=== PATIENT | male | born 1955 | race Caucasian/White ===

== ENCOUNTER → 2018-11-22 14:34 | Outpatient (CLI) | payer OTHER, SELFPAY ==
[2018-11-06 08:59] VITALS: BMI 34.0
--- NOTE | 2018-11-22 14:37 | ECHOD_ITS ---
Reason For Study: MURMUR Procedure This was a 2D Doppler, Color Flow transthoracic echocardiogram. Exam performed in department. Left Ventricle Normal LV size. The estimated ejection fraction is 60 %. Stage 1 diastolic dysfunction. No regional wall motion abnormalities noted. Right Ventricle Normal RV size. Normal systolic function. Atria Normal left atrium. Normal right atrium. Mitral Valve Normal mitral valve. Trivial eccentric mitral valve insufficiency. Tricuspid Valve Normal tricuspid valve. Mild (1+) tricuspid valve insufficiency. Aortic Valve Normal aortic valve. Trisinus/trileaflet aortic valve. Pulmonic Valve Normal pulmonic valve. Great Vessels Normal aortic root. The pulmonary artery is normal size. Normal inferior vena cava. Pericardium/Pleural No pericardial effusion. MMode/2D Measurements & Calculations LVIDd: 4.4 cm IVSd: 1.2 cm Ao root diam: 3.6 cm LVIDs: 3.1 cm LVPWd: 1.1 cm FS: 28.1 % LAV(MOD-bp): 48.5 ml LA A4 area: 17.2 cm2 LA dimension(2D): 4.0 cm LAV(MOD-bp) Indexed: 20.7 ml/m2 LAV(MOD-sp2): 52.2 ml LAV(MOD-sp4): 44.8 ml RA A4 area: 14.1 cm2 Time Measurements MV dec time: 0.25 sec Doppler Measurements & Calculations MV E max pepito: 59.0 cm/sec Lat Peak E' Pepito: 5.1 cm/sec Med Peak E' Pepito: 5.6 cm/sec MV A max pepito: 79.2 cm/sec E/E' lat: 11.6 E/E' med: 10.6 MV E/A: 0.74 Ao V2 max: 179.1 cm/sec LV V1 max: 113.8 cm/sec PA V2 max: 106.3 cm/sec Ao max P.8 mmHg LV V1 max P.2 mmHg TR max peptio: 226.9 cm/sec TR max P.6 mmHg Interpretation Summary Normal LV size. The estimated ejection fraction is 60 %. Stage 1 diastolic dysfunction. Mild (1+) tricuspid valve insufficiency. Ordering Physician: Rush Francisco Referring Physician: Arley Martinez Performed By: Shelbie Mcgee, HERACLIO, RVT
== END ==
PROVIDERS: Family Provider Family Medicine; PCP Family Medicine; Referring Provider Internal Medicine Cardiovascular Disease; Visit Provider Internal Medicine Cardiovascular Disease
DX: I10 Essential (primary) hypertension (principal); R01.1 Cardiac murmur, unspecified
CPT/HCPCS: 93306

== ENCOUNTER → 2019-11-22 06:37 | Outpatient (CLI) | payer OTHER, SELFPAY ==
[2019-11-12 10:03] VITALS: BMI 34.9
--- NOTE | 2019-11-22 08:42 | STRESSREP_ITS ---
Stress Test Report Thank you exercise myocardial perfusion stress test. 64-year-old man with a history of chest pain. Stress protocol: Resting EKG demonstrates normal sinus rhythm with a rate of 75 bpm normal intervals are noted resting blood pressure is 142/96 mmHg. The patient exercised according to regular Wesley protocol for 5 minutes and 18 seconds. The maximum heart rate attained was 136 bpm which was 86% of maximum predicted heart rate the maximum workload was 7 metabolic equivalents. At rest there were no ST or T wave changes noted to suggest ischemia at peak infusion nonspecific ST-T wave changes were noted with no meet the criteria for ischemia. No clinical angina was noted the test was terminated due to dyspnea. The peak blood press ure was 212/96 which was hypertensive response to exercise. Myocardial perfusion protocol. 15.0 mCi of technetium 99m sestamibi was injected at rest. The patient exercised according to regular Wesley protocol. At peak infusion 45.0 mCi of technetium 99m sestamibi was injected stress images were obtained stress and rest images were reconstructed in comparing the short axis vertical long horizontal long axis. Gated images were also obtained Perfusion SPECT analysis: Review of the stress images demonstrate normal uptake of tracer noted in all areas of the myocardium the resting images similar demonstrate normal uptake of tracer noted in all areas of myocardium. No areas of reversibility are noted suggest ischemia no previous infarct is noted. Gated SPECT analysis: The gated ejection fraction is noted to be 60%. Conclusion: Normal exercise myocardial perfusion stress test at a moderate workload. Preserved ejection fraction.
== END ==
PROVIDERS: PCP Family Medicine; Referring Provider Internal Medicine Cardiovascular Disease; Visit Provider Internal Medicine Cardiovascular Disease
DX: I25.10 Atherosclerotic heart disease of native coronary artery without angina pectoris (principal); I10 Essential (primary) hypertension; Z95.5 Presence of coronary angioplasty implant and graft
CPT/HCPCS: 78452; 93017; A9500; A4216

== ENCOUNTER 2021-03-22 08:41 | Inpatient (IN) | payer OTHER, SELFPAY ==
[2021-03-22] VITALS (15 sets, daily range): BP systolic 129–174; BP diastolic 66–117; PULSE 66–86; RESP 14–21; TEMP 36.2–36.9; O2SAT 93–99; BMI 36.4; BMI 36.0
--- NOTE | 2021-03-22 09:10 | EKG12_ITS ---
Test Reason : REPEAT Blood Pressure : / mmHG Vent. Rate : 061 BPM Atrial Rate : 061 BPM P-R Int : 214 ms QRS Dur : 082 ms QT Int : 398 ms P-R-T Axes : 054 -35 034 degrees QTc Int : 400 ms Sinus rhythm with 1st degree A-V block Left axis deviation Nonspecific T wave abnormality Abnormal ECG Confirmed by MATT BLANCO, MELISSA ([id number]), food expeditor JUSTIN WAGNER ([id number]) on 03/23/2021 8:35:23 AM Referred By: FER Confirmed By:MELISSA GUTIERREZ MD
--- NOTE | 2021-03-22 09:11 | ED.VIS.CHEST ---
HPI History of Present Illness Chief Complaint: Chest Pain Informant: patient Onset/Context/Timing Onset: Yesterday Activity at onset: activity on onset and light activity Timing: Intermittent Quality: Positive for Pressure Location: Substernal Current Severity: Moderate Maximum Severity: Severe Worsened By: Exertion Relieved By: Rest (but not this AM) Associated Symptoms: Positive for Diaphoresis; Negative for Nausea, Dyspnea, Cough, Fever, Lightheadedness and Palpitations Narrative Narrative: 65-year-old male with a history of coronary disease and cardiac stents presenting with intermittent chest discomfort that started last night with light activity/exertion. Whenever resting it would resolve within about 30 minutes. This morning he was in the basement and came up the steps and had the discomfort again, it has been there for 1.5 hours and has not yet resolved. Last took his aspirin last night before he went to bed, 81 mg. Has not tried any other medications for this discomfort yet. Does not usually get chest discomfort. It is substernal pressure radiating to the jaw on the left upper extremity. Nonpleuritic. Prior Similar Symptoms: Yes, With Prior SC and With Prior Angina [facility] Medical History (Updated 03/22/21 @ 10:[address] Ruslan Davenport MD) Atherosclerosis of coronary artery of [place] heart without angina pectoris Essential (primary) hypertension Fibromyalgia History of diverticulitis History of inferior wall myocardial infarction (07/2009) Hyperlipidemia Obesity Home Medications amitriptyline 75 mg tablet 75 mg PO QHS 10/27/17 [History Last Taken Unknown] aspirin 81 mg tablet,delayed release 81 mg PO DAILY 10/27/17 [History Last Taken Unknown] cholecalciferol (vitamin D3) 50 mcg (2,000 unit) tablet 2,000 unit PO DAILY 10/27/17 [History Last Taken Unknown] clopidogrel 75 mg tablet 75 mg PO DAILY 10/27/17 [History Last Taken Unknown] duloxetine 60 mg capsule,delayed release 60 mg PO DAILY 10/27/17 [History Last Taken Unknown] nitroglycerin 0.4 mg sublingual tablet 0.4 mg SUBLINGUAL Q5-15M PRN 10/27/17 [History Last Taken Unknown] pravastatin 80 mg tablet 80 mg PO DAILY 10/27/17 [History Last Taken Unknown] omega-3 fatty acids 1,000 mg capsule 1,000 mg PO DAILY 11/02/17 [History Last Taken Unknown] biotin 5 mg capsule 5 mg PO DAILY 11/12/19 [History Last Taken Unknown] losartan 100 mg tablet 100 mg PO DAILY #90 tab 01/01/20 [Rx Last Taken Unknown] carvedilol 25 mg tablet 25 mg PO BID #180 tab 02/02/21 [Rx Last Taken Unknown] Allergy/AdvReac Type Severity Reaction Status Date / Time bee venom protein (honey bee) Allergy Severe Anaphylaxis Verified 03/22/21 09:42 lisinopril AdvReac Intermediate cough Verified 03/22/21 09:42 Family History Father CAD (coronary artery disease) Mother , 84 Colon cancer Cancer lung Surgical History History of colon resection (06/2012) History of coronary artery stent placement (08/2009) History of herniorrhaphy (11/2018) History of left heart catheterization (03/05/10) History of lithotripsy History of tonsillectomy Social History Smoking Status: Former smoker quit date: 06/25/09 pack-years: 25 alcohol intake: never caffeine: Yes Type: coffee Number of servings: 3 ROS ROS ED Constitutional Constitutional ED: Reports excessive sweating; Denies chills or fever(s) Eyes Eyes: Denies change in vision or diplopia ENT ENT ED: Denies rhinorrhea or sore throat Cardiovascular Cardiovascular: Reports as per HPI and chest pain; Denies palpitations Respiratory/Chest Respiratory/Chest: Denies cough or dyspnea Gastrointestinal Gastrointestinal: Denies abdominal pain, diarrhea, nausea or vomiting Genitourinary Genitourinary ED: Denies dysuria or hematuria Musculoskeletal Musculoskeletal: Denies back pain or neck pain Integumentary Denies abscess or rash Neurologic Neurologic: Denies headache(s), paresthesias or weakness Psychiatric Psychiatric: Denies anxiety or suicidal thoughts EXAM Physical Exam Const Vital Signs: 03/22/21 08:41 03/22/21 09:29 03/22/21 09:36 Temperature 98.5 F Temperature Source Oral Pulse Rate 86 83 Respiratory Rate 21 H Blood Pressure 170/102 H 156/104 H Blood Pressure Mean 124 Pulse Ox 98 Oxygen Delivery Method Room Air Room Air 03/22/21 09:45 03/22/21 10:09 Temperature Temperature Source Pulse Rate 76 70 Respiratory Rate 16 Blood Pressure 136/92 H 129/76 H Blood Pressure Mean 93 Pulse Ox 94 Oxygen Delivery Method Positive well nourished, well developed and obese General Appearance ED: well developed and NAD Nutritional Appearance: obese HEENT Reports moist mucous membranes normocephalic and atraumatic Eyes PERRL and EOMs intact bilaterally Neck full ROM and supple Resp normal respiratory effort and clear to auscultation bilaterally Cardio regular rate and regular rhythm Cardio Narrative: 2/6 systolic murmur GI non-tender and non-distended Auscultation: normoactive bowel sounds Palpation: soft Back/Spine no CVA tenderness General Back: other FROM Extremity normal to inspection and no calf tenderness General Extremety ED: Negative for edema, pulses abnormal or tenderness General Extremity: Negative for edema or pulses abnormal Neuro oriented x3, CN's II-XII intact bilaterally and no sensory deficits noted Sensorium / Orientation: awake and alert Motor Exam: strength 5/5 throughout Skin no rashes or lesions noted and no wounds Heart Score History: Highly Suspicious ECG: Nonspecific Repolarization Age: >45 - <65 years Risk Factors: >/= 3 Risk Factors or History of CAD Troponin: </= Normal Limit Score: 6 MDM MDM MDM Narrative Medical decision making narrative: Initial troponin within normal limits, borderline however. Concerned about the patient's symptoms and EKG, consistent with unstable angina. Pain-free after 2 nitroglycerin. Repeat EKG shows the ST depressions are resolved. Discussed with Dr. Francisco. Agrees with admission. No heparin at this time recommended. We will monitor him for now in the emergency department, he will go directly to the Operations Professional with cardiology. Discussed with hospitalist. Lab Data Attestation: I reviewed the patient's lab results. Labs: Laboratory Results - last 24 hr 03/22/21 03/22/21 03/22/21 08:45 08:45 08:45 WBC 4.9 RBC 4.70 Hgb 14.5 Hct 43.1 MCV 91.7 MCH 30.9 MCHC 33.6 RDW Std Deviation 42.3 RDW Coeff of Leobardo 12.6 Plt Count 154 MPV 10.1 Immature Gran % (Auto) 0.400 Neut % (Auto) 58.4 Lymph % (Auto) 25.5 [place] % (Auto) 11.0 H Eos % (Auto) 4.1 Baso % (Auto) 0.6 Absolute Neuts (auto) 2.9 Absolute Lymphs (auto) 1.25 Nucleated RBC % 0 APTT 29.2 Sodium 137 Potassium 4.0 Chloride 106 Carbon Dioxide 24.0 Anion Gap 7 BUN 12 Creatinine 0.90 Estim Creat Clear Calc 92.21 Est GFR (MDRD) Af Amer 109 Est GFR (MDRD) Non-Af 90 BUN/Creatinine Ratio 13.3 Glucose 225 H Calcium 8.5 Troponin I High Sens 68 Radiography Diagnostic Testing: Clinical Impression(s) from Imaging Studies Chest X-Ray 03/22/21 09:51 IMPRESSION: Hyperinflation. The lungs are clear. Electronically Signed: Shimon Rider MD at 10:14 EST , EKG Initial EKG: Attestation: I personally reviewed and interpreted this EKG as follows: Interpretation: Sinus Rhythm and AV Block (1st deg) Comments: Very slight ST depressions V3-V6, less than [address] elevations. Left axis. Prior EKG tracings: not available for review Follow-up EKG: Attestation: I personally reviewed and interpreted this EKG as follows: Interpretation: Sinus Rhythm and No Acute Injury Pattern Comments: Resolution of ST depressions Discharge Plan Dx/Rx/DC Orders Clinical Impression: Unstable angina Disposition Disposition: Acute Care Hospital [facility]
[2021-03-22 09:29] LABS: Absolute Lymphocyte Count 1.25 X10^3/uL (0.83-4.51); Absolute Neutrophil Count 2.9 X10^3/uL (2.0-7.7); Basophil# 0.03 X10^3/uL; Basophil% 0.6 % (0-1); Eosinophils% 4.1 % (0-5); Hematocrit 43.1 % (40-54); Hemoglobin 14.5 g/dL (13.0-16.5); Lymphocyte # 1.25 X10^3/ul (0.83-4.51); Lymphocyte % 25.5 % (19-41); Mean Corp Hgb Conc 33.6 g/dL (32-36); Mean Corpuscular Hgb 30.9 pg (27.0-32.0); Mean Corpuscular Volume 91.7 fL (80-94); Mean Platelet Vol. 10.1 fl (6.2-12.0); Monocyte# 0.54 X10^3/uL; NRBC Flagged by Analyzer 0 % (0-5); Neutrophil # 2.87 X10^3/uL (2.7-7.7); Neutrophil % 58.4 % (47-70); Platelet Count 154 K/mm3 (150-450); RBC Distribution Width CV 12.6 % (11.6-14.6); RBC Distribution Width SD 42.3 fl (35.1-43.9); White Blood Count 4.9 K/mm3 (4.4-11.0)
[2021-03-22] MEDS: 0.9% Normal Saline 1,000 ML 150 ML IV ×2 (09:29→18:14)
[2021-03-22] MEDS: Aspirin 81 MG TAB.CHEW 324 MG PO (09:29)
[2021-03-22] MEDS: Nitroglycerin SL (ED/IMG/CATH) 0.4 MG TABLET SL ×2 (09:29→09:45)
[2021-03-22 09:35] LABS: Partial Thromboplast Time 29.2 Seconds (24.1-36.2)
[2021-03-22 09:42] LABS: Anion Gap 7 (5-15); BUN 12 mg/dL (7-18); BUN/Creat Ratio 13.3 RATIO (10-20); Calcium,Total 8.5 mg/dL (8.5-10.1); Chloride 106 mmol/L (98-107); EST Glomerular Filtration Rate 90 mL/min (>60); Est Glom Filt Rate - Afr Amer 109 mL/min (>60); Estimated Creatinine Clearance 92.21 ml/min; Glucose 225 mg/dL (74-106); Sodium Level 137 mmol/L (136-145); Troponin-I HS 68 pg/mL (3.0-78.0)
--- NOTE | 2021-03-22 09:51 | RAD_ITS ---
STUDY: X-RAY CHEST REASON FOR EXAM: Male, 65 years old. Chest pain TECHNIQUE: Single AP portable view of the chest. COMPARISON: None. FINDINGS: EKG electrodes are seen. Hyperinflation. The lungs are clear. There is no demonstrated pleural abnormality. Normal size heart. Normal mediastinum and adrian. Normal visualized pulmonary arteries. There is atherosclerotic calcification of the aortic arch with tortuosity. There are diffuse degenerative changes of the visualized thoracic spine. Normal visualized ribs, clavicles, and shoulders. There is no demonstrated abnormality of the visualized soft tissue structures of the upper abdomen. RAD/Chest 1 View (Portable) IMPRESSION: Hyperinflation. The lungs are clear. Electronically Signed: Shimon Rider MD at 10:14 [facility] ,
--- NOTE | 2021-03-22 10:32 | EKG12_ITS ---
Test Reason : CP Blood Pressure : / mmHG Vent. Rate : 084 BPM Atrial Rate : 084 BPM P-R Int : 214 ms QRS Dur : 088 ms QT Int : 348 ms P-R-T Axes : 044 -39 096 degrees QTc Int : 411 ms Sinus rhythm with 1st degree A-V block Left axis deviation Nonspecific ST and T wave abnormality Abnormal ECG Confirmed by MATT BLANCO, MELISSA ([id number]), slot editor JUSTIN WAGNER ([id number]) on 03/23/2021 8:35:36 AM Referred By: DAVIDE/YU Confirmed By:MELISSA GUTIERREZ MD
--- NOTE | 2021-03-22 10:43 | PCM.CONS.C ---
Assessment & Plan Assessment/Plan (1) Unstable angina: PLAN: He presents with chest discomfort suggestive of unstable angina. At this time I would recommend that we proceed with a left heart catheterization especially with his dynamic EKG changes. The above has been explained to the patient the risk benefits alternatives he understands and agrees to proceed. Addendum: Cardiac catheterization performed today demonstrated normal left main coronary artery: Left anterior descending artery with mid 98% stenosis noted. Left circumflex artery previously stented with mild diffuse disease. Ramus intermedius with mild diffuse disease. Right coronary artery which is dominant previously stented and no evidence of in-stent stenosis. Based on the above angiographic findings the patient would undergo PCI of the left anterior descending artery. (2) History of coronary artery stent placement: PLAN: He does have a history of known coronary artery disease status post previous angioplasty and stent placement. This was reevaluated at the cardiac catheterization today. (3) Essential (primary) hypertension: PLAN: He does have a hypertension which does not appear to be very well controlled. We would relook at his medications and aggressively make changes. (4) Hyperlipidemia: QUALIFIERS: Hyperlipidemia type: pure hypercholesterolemia Qualified Code(s): E78.00 - Pure hypercholesterolemia, unspecified; E78.0 - Pure hypercholesterolemia PLAN: He will continue with aggressive risk factor modification. Thank you for allowing me to participate in the care of your patient. Please don't hesitate to call if any issues arise. HPI Consult Data Date of Consult: 03/22/21 HPI Narrative HPI Narrative: TEE WATKINS, is a 65 M who presents to the emergency room with complaints of chest discomfort. He says that it started this morning with what he considers to be fairly minor activity. He presented to the emergency room complaining of the same an EKG was done which demonstrated evidence of inferolateral ST depression. He was given sublingual nitroglycerin with improvement in the chest discomfort as well as the EKG changes. He has been compliant with his medications. He last saw us in the office in January 2021. He had previously undergone angioplasty and stenting of the left circumflex artery 2009 and also the right coronary artery, history of hypertension. A follow-up cardiac catheterization in 2010 demonstrated patency of his previously placed stents. He denied any shortness of breath or paroxysmal nocturnal dyspnea or pedal edema no neck arm or jaw discomfort suggest angina and his been compliant with his medications. Cardiac enzymes were normal. [facility] Medical History Atherosclerosis of coronary artery of [place] heart without angina pectoris Essential (primary) hypertension Fibromyalgia History of diverticulitis History of inferior wall myocardial infarction (07/2009) Hyperlipidemia Obesity Home Medications amitriptyline 75 mg tablet 75 mg PO QHS 10/27/17 [History Last Taken Unknown] aspirin 81 mg tablet,delayed release 81 mg PO DAILY 10/27/17 [History Last Taken Unknown] cholecalciferol (vitamin D3) 50 mcg (2,000 unit) tablet 2,000 unit PO DAILY 10/27/17 [History Last Taken Unknown] clopidogrel 75 mg tablet 75 mg PO DAILY 10/27/17 [History Last Taken Unknown] duloxetine 60 mg capsule,delayed release 60 mg PO DAILY 10/27/17 [History Last Taken Unknown] nitroglycerin 0.4 mg sublingual tablet 0.4 mg SUBLINGUAL Q5-15M PRN 10/27/17 [History Last Taken Unknown] pravastatin 80 mg tablet 80 mg PO DAILY 10/27/17 [History Last Taken Unknown] omega-3 fatty acids 1,000 mg capsule 1,000 mg PO DAILY 11/02/17 [History Last Taken Unknown] biotin 5 mg capsule 5 mg PO DAILY 11/12/19 [History Last Taken Unknown] losartan 100 mg tablet 100 mg PO DAILY #90 tab 01/01/20 [Rx Last Taken Unknown] carvedilol 25 mg tablet 25 mg PO BID #180 tab 02/02/21 [Rx Last Taken Unknown] Allergy/AdvReac Type Severity Reaction Status Date / Time bee venom protein (honey bee) Allergy Severe Anaphylaxis Verified 03/22/21 09:42 lisinopril AdvReac Intermediate cough Verified 03/22/21 09:42 Family History Father CAD (coronary artery disease) Mother , 84 Colon cancer Cancer lung Surgical History History of colon resection (06/2012) History of coronary artery stent placement (08/2009) History of herniorrhaphy (11/2018) History of left heart catheterization (03/05/10) History of lithotripsy History of tonsillectomy Social History Smoking Status: Former smoker quit date: 06/25/09 pack-years: 25 alcohol intake: never caffeine: Yes Type: coffee Number of servings: 3 ROS Constitutional Constitutional: Denies fever(s) or weight loss Eyes Eyes: Reports systems reviewed and no addt'l complaints, except as documented ENT HEENT: Reports systems reviewed and no addt'l complaints, except as documented Cardiovascular Cardiovascular: Reports chest pain at rest and chest pain with activity; Denies dyspnea at rest, dyspnea on exertion, edema, palpitations or paroxysmal nocturnal dyspnea Respiratory/Chest Respiratory/Chest: Denies dyspnea on exertion, productive cough, shortness of breath at rest or shortness of breath with exertion Gastrointestinal Gastrointestinal: Denies change in bowel habits, nausea, vomiting or weight changes Genitourinary Genitourinary: Denies difficulty urinating Musculoskeletal Musculoskeletal: Denies joint stiffness or muscle weakness Integumentary Integumentary: Denies lesions Neurologic Neurologic: Denies dizziness or syncope Psychiatric Psychiatric: Denies anxiety Endocrine Endocrinology: Denies excessive sweating or fatigue Hematologic/Lymphatic Hematologic/Lymphatic: Denies anemia Allergic/Immunologic Allergic/Immunologic: Denies seasonal rhinorrhea Physical Exam Const alert, oriented x3 and no apparent distress General Appearance: cooperative HEENT hearing grossly normal bilaterally Head and Scalp: atraumatic Eyes EOMs intact bilaterally Neck General: normal visual inspection Chest inspection of chest normal and palpation of chest normal Resp normal respiratory effort Auscultation: clear to auscultation bilaterally Cardio regular rate, regular rhythm, S1 normal heart sound and S2 normal heart sound Jugular Venous Distention: JVD GI normal to inspection, nondistended, normoactive bowel sounds Extremity normal capillary refill and no pedal edema Peripheral Pulses: Yes pulses 2+ throughout and femoral pulses present Skin no rashes or lesions noted Neuro oriented x3 and CN's II-XII intact bilaterally Psych Appearance: grossly normal and appropriate Risk Stratification Risk Stratification Applicable: Yes Age >/= 65: No >/= 3 CAD Risk Factors (HTN, HLD, DM, family hx of CAD, or current smoker): Yes Aspirin Use in the Past 7 Days: Yes Severe Angina (>/= episodes in 24 hours): Yes EKG ST Changes >/= 0.5mm: Yes Positive Cardiac Marker: No KECIA Risk Stratification Score: 4 KECIA % Risk: 20% Risk Objective Data Vital Signs: Vital Signs Temp Pulse Resp BP Pulse Ox 98.5 F 70 16 129/76 H 94 03/22/21 08:41 03/22/21 10:09 03/22/21 10:09 03/22/21 10:09 03/22/21 10:09 Oxygen Delivery Method Room Air Weight: 268 lb 15.423 oz Body Mass Index (BMI) 36.4 Lab / Micro Data Result Diagrams: 03/22/21 08:45 03/22/21 08:45 Labs: Laboratory Results - last 24 hr 03/22/21 08:45: WBC 4.9, RBC 4.70, Hgb 14.5, Hct 43.1, MCV 91.7, MCH 30.9, MCHC 33.6, RDW Std Deviation 42.3, RDW Coeff of Leobardo 12.6, Plt Count 154, MPV 10.1, Immature Gran % (Auto) 0.400, Neut % (Auto) 58.4, Lymph % (Auto) 25.5, [place] % (Auto) 11.0 H, Eos % (Auto) 4.1, Baso % (Auto) 0.6, Absolute Neuts (auto) 2.9, Absolute Lymphs (auto) 1.25, Nucleated RBC % 0 03/22/21 08:45: APTT 29.2 03/22/21 08:45: Sodium 137, Potassium 4.0, Chloride 106, Carbon Dioxide 24.0, Anion Gap 7, BUN 12, Creatinine 0.90, Estim Creat Clear Calc 92.21, Est GFR (MDRD) Af Amer 109, Est GFR (MDRD) Non-Af 90, BUN/Creatinine Ratio 13.3, Glucose 225 H, Calcium 8.5, Troponin I High Sens 68 Cardiology Labs/Tests 03/22/21 08:45: WBC 4.9, RBC 4.70, Hgb 14.5, Hct 43.1, MCV 91.7, MCH 30.9, MCHC 33.6, Plt Count 154, MPV 10.1, Immature Gran % (Auto) 0.400, Neut % (Auto) 58.4, Lymph % (Auto) 25.5, [place] % (Auto) 11.0 H, Eos % (Auto) 4.1, Baso % (Auto) 0.6, Absolute Neuts (auto) 2.9, Nucleated RBC % 0 03/22/21 08:45: APTT 29.2 03/22/21 08:45: Sodium 137, Potassium 4.0, Chloride 106, Carbon Dioxide 24.0, Anion Gap 7, BUN 12, Creatinine 0.90, Est GFR (MDRD) Af Amer 109, Est GFR (MDRD) Non-Af 90, BUN/Creatinine Ratio 13.3, Glucose 225 H, Calcium 8.5 Rhythm: EKG: ECHO: Stress Test: Cardiac Cath: PCI: CT Surgery: Holter monitor: EPS: PPM: CXR: Chest CT Scan: Radiography Diagnostic Testing: Radiology Impression Chest X-Ray 03/22/21 09:51 IMPRESSION: Hyperinflation. The lungs are clear. Electronically Signed: Shimon Rider MD at 10:14 EST ,
--- NOTE | 2021-03-22 10:49 | NURSING ---
GOING [employer]
--- NOTE | 2021-03-22 10:57 | CASEMGMT ---
According to the [facility] website, the following are in-network tertiary facilities: [facility], [facility], [facility], [place], [facility], [facility], [facility], [facility], and . Debra SALCEDO CM
--- NOTE | 2021-03-22 11:39 | CL.D_ITS ---
Patient Name: TEE WATKINS Study Date: 03/22/2021 Performing: Rush Francisco MD Ht: 72.04 inches 183 cm : 1955 Wt: 268.96 lbs 122 kg Age: 65 Gender: male BSA: 2.42 PROCEDURE(S) PERFORMED DC01-(48069)LHC/COR/LV CLINICAL PROFILE AND INDICATIONS Indications: ACS <= 24 hrs Heart Failure: None Stress/Imaging Stress/Image Study Performed: No Angina Classification Anginal Classification w/in 2 Weeks: CCS III CAD Presentations: Unstable angina. CONCLUSIONS Severe single-vessel mid LAD disease with mild diffuse disease noted in other vessels and previously stented circumflex artery and right coronary artery patent with preserved ejection fraction RECOMMENDATIONS Referred for immediate PCI DESCRIPTION OF PROCEDURE The patient arrived to the procedure lab. The risks and benefits of the procedure as well as a full d escription of our services here and current unavailability of surgical backup were fully explained to the patient and/or their significant other prior to the catheterization. The Timeout was completed, verifying the correct patient and procedure. The patient's procedural site was prepped and draped in the usual fashion. Local anesthetic was given subcutaneously to right radial region with Lidocaine 2% . Using a modified Seldinger technique, arterial access was obtained via the right radial artery, a 6 Fr sheath was inserted. Left Coronary Artery selective angiography was performed in multiple views u sing a 5 Fr. 4.0 [place] catheter. Right Coronary Artery selective angiography was then performed in mu ltiple views using a 5 Fr. 4.0 [place] catheter. Left Ventriculography was performed in [place] projection using a 5 Fr. Pigtail catheter. LV to AO pullback pressures were then recorded. CORONARY ANGIOGRAPHY DOMINANCE: Right Dominant LEFT HEART ASSESSMENT Left Ventricular Ejection Fraction: by LV Gram 60 % Normal LV wall motion Normal Left Ventricular systolic function LEFT MAIN: Angiographically normal LEFT ANTERIOR DESCENDING ARTERY: MID LAD: Diffusely diseased vessel with mid LAD with 98% stenosis CIRCUMFLEX ARTERY: Mildly diffusely diseased vessel with mid circumflex with 30 to 40% stenosis and a yuan of previous stenting with minimal in-stent stenosis. RAMUS: Moderate luminal irregularities up to 50% RIGHT CORONARY ARTERY: Previously placed stent which is patent with mild/moderate diffuse disease but no high-grade stenosis noted COMPLICATIONS PROCEDURE MEDICATIONS Fentanyl 50 mcg IV Versed 1 mg IV Versed 1 mg IV Oxygen: 2 L/min via nasal cannula Heparin given IA 03/22/2021 11:20:04 Verapamil 2.5mg, Ntg 100mcgs, 3000 units of Heparin given IA 03/22/2021 11:20:04 SUMMARY OF HEMODYNAMIC DATA Time AIR REST ECG 11:05:35 AO 96/66 (81) SA 11:22:43 LV 110/-2, 8 11:30:17 LV 111/0, 30 11:30:24 LV 103/0, 12 11:31:10 LVp 98/-1, 7 11:31:16 AOp 119/73 (93) 11:31:21 AO 117/65 (89) 11:49:13 Signed By Rush Francisco MD On 03/22/2021 12:46:36 PM Signed By Rush Francisco MD On 03/22/2021 11:38:02 Rush Francisco MD
--- NOTE | 2021-03-22 12:30 | EKG12_ITS ---
Test Reason : POST PCI Blood Pressure : / mmHG Vent. Rate : 067 BPM Atrial Rate : 067 BPM P-R Int : 218 ms QRS Dur : 082 ms QT Int : 402 ms P-R-T Axes : 043 -39 -16 degrees QTc Int : 424 ms Sinus rhythm with 1st degree A-V block Left axis deviation Abnormal ECG When compared with ECG of 12-MAY-2009 05:29, [place] interval has increased T wave inversion now evident in Inferior leads Confirmed by MATT BLANCO, MELISSA ([id number]), senior technical editor PARAMJIT MEADE ([id number]) on 03/24/2021 8:11:59 AM Referred By: MATT Confirmed By:MELISSA GUTIERREZ MD
--- NOTE | 2021-03-22 12:50 | CL.I_ITS ---
Patient Name: TEE WATKINS Study Date: 03/22/2021 Performing: Jessee Shelby MD Ht: 72.04 inches 183 cm : 1955 Wt: 268.96 lbs 122 kg Age: 65 Gender: male BSA: 2.42 PROCEDURE(S) PERFORMED IC12-(03003/C9600)VICTOR MANUEL W/WO PTCA, SINGLE CORONARY ARTERY CLINICAL PROFILE AND CO-MORBIDITIES Indications: ACS <= 24 hrs Heart Failure: None Stress/Imaging Stress/Image Study Performed: No Angina Classification Anginal Classification w/in 2 Weeks: CCS III CAD Presentations: Unstable angina. CONCLUSIONS Successful VICTOR MANUEL to mLAD RECOMMENDATIONS DESCRIPTION OF PROCEDURE The patient arrived to the procedure lab. The risks and benefits of the procedure as well as a full d escription of our services here and current unavailability of surgical backup were fully explained to the patient and/or their significant other prior to the catheterization. The Timeout was completed, verifying the correct patient and procedure. The patient's procedural site was prepped and draped in the usual fashion. Local anesthetic was given subcutaneously to right radial region with Lidocaine 2% Using a modified Seldinger technique,arterial access was obtained via the right radial artery, a 6Fr sheath was inserted. Left Coronary Artery selective angiography was performed in multiple views usin g a 5 Fr. 4.0 [place] catheter. Right Coronary Artery selective angiography was then performed in multi ple views using a 5 Fr. 4.0 [place] catheter. Left Ventriculography was performed in [place] projection usi ng a 5 Fr. Pigtail catheter. LV to AO pullback pressures were then recorded.The images were reviewed and options discussed. A decision was then made to proceed with an Intervention, IVUS o r other adjunct procedure. Angiogram performed pre balloon dilatation. XB 3.0 Guide catheter was inserted and engaged into t he LCA. BMW Guide wire was advanced to the LAD. Emerge 4.0 x 8 Balloon catheter was advanced across l esion in the LAD, mid. PTCA balloon inflated at 6 atms for 9 secs. PTCA balloon inflated at 6 atms fo r 7 secs. 4.0 x 13 Orsiro Drug Eluting stent was advanced across the lesion in the LAD, mid. 4.0 x 8 Euphora NC Balloon catheter was inserted post stent. The arterial sheath was pulled and a TR Band w as applied for hemostasis INTERVENTION INFORMATION LESION SITE: LAD (Mid) Lesion Complexity: High/C, chronic total occlusion: No, lesion at bifurcation: Yes, thrombus present: Yes, lesion length: 12 mm, culprit lesion: Yes, Previously treated lesion: No Pre Stenosis: 99 % Pre intervention KECIA flow: 2 PROCEDURE: Drug Eluting Stent with pre and post dilatation Post Stenosis: 0 % Post intervention KECIA flow: 3 Lesion Devices: Sanz .014 BMW [place] Straight 190cm Cardinal 6 Fr XB3.0 100cm Guide Catheter Jasper Sci EMERGE MR 4.00x08 BALLOON Biotronik Orsiro [place] MR VICTOR MANUEL 4.0x13 Medtronic NC EUPHORA RX 4.0x08 BALLOON COMPLICATIONS No Complications PROCEDURE MEDICATIONS Fentanyl 50 mcg IV Versed 1 mg IV Versed 1 mg IV Oxygen: 2 L/min via nasal cannula Heparin given IA 03/22/2021 11:20:04 Heparin 7000 unit(s) IV 03/22/2021 11:36:14 Verapamil 2.5mg, Ntg 100mcgs, 3000 units of Heparin given IA 03/22/2021 11:20:04 SUMMARY OF HEMODYNAMIC DATA Time AIR REST ECG 11:05:35 AO 96/66 (81) SA 11:22:43 LV 110/-2, 8 11:30:17 LV 111/0, 30 11:30:24 LV 103/0, 12 11:31:10 LVp 98/-1, 7 11:31:16 AOp 119/73 (93) 11:31:21 AO 117/65 (89) 11:49:13 12:46:46 Signed By Jessee Shelby MD On 03/22/2021 12:49:09 Jessee Shelby MD
--- NOTE | 2021-03-22 13:27 | PCM.HP.STD ---
HPI - General General Date of Admission: 03/22/21 Date of Service: 03/22/21 Chief Complaint: Chest pain HPI Narrative TEE WATKINS, is a 65 M who presented to the emergency department was coming hospital on 03/22/2021 with a chief complaint of chest discomfort. The patient reported it started on the morning of admission and he considered to be present with fairly minor activity. After further questioning he did admit that he had some chest discomfort the day previously that went away when he relaxed and sat down and had no further episodes through the night so his plan was to go to work on the day of presentation. He complained of associated diaphoresis and shortness of breath. Given his chest discomfort on arrival, an EKG was done upon arrival to the emergency department and showed inferior lateral ST depression. He was given sublingual nitro and had improvement with his chest discomfort and therefore an EKG was repeated and showed resolution of his ST depression in inferolateral leads. Cardiology was therefore contacted and he was taken urgently to the [facility] for unstable angina. He does have a history of CAD and had undergone angioplasty and stenting of the left circumflex artery and RCA in 2009. His vital signs emergency department were stable. His CBC was unremarkable. His BMP was overall unremarkable other than a nonfasting blood sugar of 225. His initial troponin was 68. In the [facility] severe single-vessel mid LAD disease was noted with mild diffuse disease in other vessels and patency of his previous stented vessels was noted. His ejection fraction was preserved and PCI was performed. Patient is currently having no symptoms and feeling much better. [facility] Medical History (Updated 03/22/21 @ 13:[address] Alejandra Charles, ) Atherosclerosis of coronary artery of [place] heart without angina pectoris Essential (primary) hypertension Fibromyalgia History of diverticulitis History of inferior wall myocardial infarction (07/2009) Hyperlipidemia Obesity Home Medications amitriptyline 75 mg tablet 75 mg PO QHS 10/27/17 [History Last Taken 03/21/21 22:00] aspirin 81 mg tablet,delayed release 81 mg PO DAILY 10/27/17 [History Last Taken 03/22/21 07:00] cholecalciferol (vitamin D3) 50 mcg (2,000 unit) tablet 2,000 unit PO DAILY 10/27/17 [History Last Taken 03/22/21 08:00] clopidogrel 75 mg tablet 75 mg PO DAILY 10/27/17 [History Last Taken 03/22/21 07:00] duloxetine 60 mg capsule,delayed release 60 mg PO DAILY 10/27/17 [History Last Taken 03/22/21 07:00] nitroglycerin 0.4 mg sublingual tablet 0.4 mg SUBLINGUAL Q5-15M PRN 10/27/17 [History Last Taken 03/22/21 09:00] pravastatin 80 mg tablet 80 mg PO DAILY 10/27/17 [History Last Taken 03/21/21 22:00] omega-3 fatty acids 1,000 mg capsule 1,000 mg PO DAILY 11/02/17 [History Last Taken 03/22/21 07:00] biotin 5 mg capsule 5 mg PO DAILY 11/12/19 [History Last Taken 03/21/21 08:00] carvedilol 25 mg PO BID 03/22/21 [History Last Taken 03/22/21 07:00] losartan 100 mg PO DAILY 03/22/21 [History Last Taken 03/22/21 07:00] Allergy/AdvReac Type Severity Reaction Status Date / Time bee venom protein (honey bee) Allergy Severe Anaphylaxis Verified 03/22/21 09:42 lisinopril AdvReac Intermediate cough Verified 03/22/21 09:42 Family History Father CAD (coronary artery disease) Mother , 84 Colon cancer Cancer lung Surgical History History of colon resection (06/2012) History of coronary artery stent placement (08/2009) History of herniorrhaphy (11/2018) History of left heart catheterization (03/05/10) History of lithotripsy History of tonsillectomy Social History Smoking Status: Former smoker quit date: 06/25/09 pack-years: 25 alcohol intake: never caffeine: Yes Type: coffee Number of servings: 3 ROS Constitutional Constitutional: Reports change in weight; Denies anorexia, chills, fatigue, fever(s), malaise, night sweats, weakness or other Eyes Eyes: Denies blurry vision, change in eye color, change in vision, discharge from eye(s), double vision, erythema, eye pain, loss of vision or other ENT HEENT: Denies abnormal hearing, dysphagia, ear pain, epistaxis, headache(s), hearing loss, nasal congestion, nasal discharge, post nasal drip, sinus pressure, sore throat or other Cardiovascular Cardiovascular: Reports chest pain and other Details: Diaphoresis Respiratory/Chest Respiratory/Chest: Reports shortness of breath with exertion; Denies cough, dyspnea, excessive phlegm production, hemoptysis, productive cough, shortness of breath at rest, wheezing or other Gastrointestinal Gastrointestinal: Denies abdominal pain, coffee ground emesis, constipation, diarrhea, dyspepsia, hematemesis, hematochezia, loose stools, melena, nausea, vomiting or other Genitourinary Genitourinary: Denies burning urination, difficulty urinating, dysuria, hematuria, nocturia, urinary frequency, urinary hesitancy, urinary incontinence, urinary urgency or other Musculoskeletal Musculoskeletal: Reports back pain, joint stiffness and myalgias; Denies arthralgias, joint pain, joint swelling, neck pain or other Neurologic Neurologic: Denies abnormal gait, abnormal speech, confusion, disequilibrium, dizziness, focal weakness, headache(s), numbness, paresthesias, seizure-like activity, seizures, syncope, tingling, tremor(s) or other Psychiatric Psychiatric: Denies anxiety, depression, homicidal ideation, suicidal ideation or other Endocrine Endocrinology: Denies change in body appearance, cold intolerance, excessive sweating, heat intolerance, polydipsia, polyuria or other Hematologic/Lymphatic Hematologic/Lymphatic: Denies anemia, easy bleeding, easy bruising, lymphadenopathy or other Allergic/Immunologic Allergic/Immunologic: Denies rhinitis, hives, eczemia, asthma or other Vital Signs Vital Signs Vital Signs: 03/22/21 08:41 03/22/21 09:29 03/22/21 09:36 Temperature 98.5 F Temperature Source Oral Pulse Rate 86 83 Respiratory Rate 21 H Blood Pressure 170/102 H 156/104 H Blood Pressure Mean 124 Blood Pressure Source Blood Pressure Position Blood Pressure Location Pulse Ox 98 Oxygen Delivery Method Room Air Room Air 03/22/21 09:45 03/22/21 10:09 03/22/21 10:57 Temperature 97.9 F Temperature Source Temporal Pulse Rate 76 70 70 Respiratory Rate 16 16 Blood Pressure 136/92 H 129/76 H 130/66 H Blood Pressure Mean 93 87 Blood Pressure Source Blood Pressure Position Blood Pressure Location Pulse Ox 94 99 Oxygen Delivery Method Room Air 03/22/21 12:30 03/22/21 12:58 03/22/21 13:13 Temperature 97.8 F Temperature Source Oral Pulse Rate 77 70 74 Respiratory Rate 15 14 15 Blood Pressure 162/107 H 157/117 H 159/105 H Blood Pressure Mean 125 130 123 Blood Pressure Source Monitor Monitor Monitor Blood Pressure Position Semi-Fowlers Semi-Fowlers Semi-Fowlers Blood Pressure Location Left Arm Left Arm Left Arm Pulse Ox 95 96 93 Oxygen Delivery Method Room Air Room Air Room Air 03/22/21 13:18 Temperature Temperature Source Pulse Rate Respiratory Rate Blood Pressure Blood Pressure Mean Blood Pressure Source Blood Pressure Position Blood Pressure Location Pulse Ox Oxygen Delivery Method Room Air Weight Weight: 120.6 kg Body Mass Index (BMI) 36.0 Physical Exam Const alert, oriented x3 and well nourished Constitutional Narrative: Obese upper middle-aged white male sitting up in bed eating lunch, appears comfortable, nontoxic General Appearance: cooperative HEENT normocephalic, head/scalp atraumatic, hearing grossly normal bilaterally and moist oral mucous membranes HEENT Narrative: Mallampati is 3, no thrush, dentition is good Eyes PERRL, EOMs intact bilaterally and conjunctivae normal Eyes Narrative: No scleral icterus Neck no lymphadenopathy, supple and no JVD Neck Narrative: Trachea is midline, no thyroid enlargement noted Resp normal respiratory effort, no retractions, no use of accessory muscles and clear to auscultation bilaterally Auscultation: Negative for crackles, rales, rhonchi or wheezes Cardio regular rate, regular rhythm, S1 normal heart sound, S2 normal heart sound, no murmurs, no rub, no gallops, no clicks and no JVD GI normal to inspection, nondistended, normoactive bowel sounds, soft to palpation, non-tender and non-distended GI Narrative: Obese Extremity no clubbing, cyanosis or edema Peripheral Pulses: Yes pulses 2+ throughout Skin no rashes or lesions noted, no wounds, skin turgor normal, no jaundice, no petechiae and no mottling Skin Narrative: Multiple tattoos Neuro oriented x3, CN's II-XII intact bilaterally, moves all extremities and no focal motor deficits Sensorium / Orientation: awake and alert Speech: speech normal Motor Exam: strength 5/5 throughout Psych affect normal Psych Narrative: Very pleasant Results Lab / Micro Data Attestation: I reviewed the patient's lab results. Result Diagrams: 03/22/21 08:45 03/22/21 08:45 Labs: Laboratory Results - last 24 hr 03/22/21 08:45: WBC 4.9, RBC 4.70, Hgb 14.5, Hct 43.1, MCV 91.7, MCH 30.9, MCHC 33.6, RDW Std Deviation 42.3, RDW Coeff of Leobardo 12.6, Plt Count 154, MPV 10.1, Immature Gran % (Auto) 0.400, Neut % (Auto) 58.4, Lymph % (Auto) 25.5, [place] % (Auto) 11.0 H, Eos % (Auto) 4.1, Baso % (Auto) 0.6, Absolute Neuts (auto) 2.9, Absolute Lymphs (auto) 1.25, Nucleated RBC % 0 03/22/21 08:45: APTT 29.2 03/22/21 08:45: Sodium 137, Potassium 4.0, Chloride 106, Carbon Dioxide 24.0, Anion Gap 7, BUN 12, Creatinine 0.90, Estim Creat Clear Calc 92.21, Est GFR (MDRD) Af Amer 109, Est GFR (MDRD) Non-Af 90, BUN/Creatinine Ratio 13.3, Glucose 225 H, Calcium 8.5, Troponin I High Sens 68 Radiology Impression Chest X-Ray 03/22/21 09:51 IMPRESSION: Hyperinflation. The lungs are clear. Electronically Signed: Shimon Rider MD at 10:14 EST , Assessment & Plan Assessment/Plan (1) Unstable angina: (2) Atherosclerosis of coronary artery of [place] heart without angina pectoris: QUALIFIERS: Coronary Disease-Associated Artery/Lesion type: [place] artery Qualified Code(s): I25.10 - Atherosclerotic heart disease of [place] coronary artery without angina pectoris (3) Hyperglycemia: PLAN: Unstable angina -Severe single-vessel disease in the mid LAD noted on catheterization and PCI performed -Continue aspirin Plavix -Check lipids -Check hemoglobin A1c -Continue home statin -Continue home carvedilol 25 mg p.o. twice daily -Continue home losartan 100 mg daily -As needed nitro -Cardiology is following-appreciate input Hyperglycemia -Nonfasting sugar this morning was 225 -Suspect some insulin resistance at baseline given this finding -Check hemoglobin A1c in a.m. History of CAD -Has previous stents in the RCA and circumflex that were patent -New stent placed in mid LAD -Treatment as outlined above Hyperlipidemia -Check lipids -Continue pravastatin 80 mg daily Hypertension -Continue carvedilol 25 mg p.o. twice daily -Continue losartan 100 mg daily Fibromyalgia -Continue duloxetine -Continue amitriptyline Obesity -Recommend weight loss -Complicates treatment, prognosis, outcomes History of tobacco abuse -Quit smoking in 2009 History of nephrolithiasis -No current issues DVT prophylaxis -Lovenox 40 mg daily CODE STATUS -Full code as verified with patient upon admission Charges/Coding Visit Charges Inpatient E&M: 94161 Init Hosp L2
--- NOTE | 2021-03-22 13:57 | CRPHASE1 ---
Patient Communication PHII Cardiac Rehab Discussed with Patient:: Yes Guide to Cardiac Rehab Given to Patient:: Yes Cardiac Rehab Facility Choice List Given to Patient:: Yes Choice Program [facility] PHII:: Communication Given to CR, Refer to [facility] Prop Maker:: Beth Shelby - Intervention dr Velasco Phase II Cardiac Rehab:: Yes - To occur after discharge Sessions:: 36 sessions - 3 days/wk, 12 weeks Cardiac Rehabilitation Info Cardiac Rehabilitation Program Information: Cardiac Rehabilitation is important for patients like you who are recovering from a heart problem. Cardiac rehabilitation programs are recognized as integral to the continued care of the patient with coronary heart disease. The cardiac rehabilitation program is designed to optimize a patient's physical, psychological, and social functioning. Health child care director work in cardiac rehabilitation programs and assist you with getting the treatments you need to get stronger and healthier - like exercise, healthy eating habits, and medications. Cardiac rehabilitation has been show to help people with heart problems live longer and have better life enjoyment than people who do not go to cardiac rehabilitation. Please contact the Cardiac Rehabilitation Program at [facility] at in two weeks if you have not heard from them.
--- NOTE | 2021-03-22 13:59 | CRPH1.INSTRU ---
General Education CAD and cardiac anatomy and function:: Needs reinforcement Explanation of diagnoses and procedures:: Needs reinforcement Sign/Symptoms of ME:: Needs reinforcement Antiplatelet therapy: Needs reinforcement Proper use of NTG-SL: Needs reinforcement Emergency procedures and activation of EMS: Needs reinforcement Compliance of all prescribed medications: Needs reinforcement Smoking Nicotine/Smoking Response Code:: Needs reinforcement Dyslipidemia Dyslipidemia Response Code:: Needs reinforcement Overweight/Obesity Patient Overweight/Obesity Risk Factors Are:: Obesity - > or = 30 Overweight/Obesity:: Needs reinforcement Hypertension Recommendations Include:: Maintain BP <130/85, DASH dietary guidelines, Decrease/maintain normal body weight, Moderation of ETOH Hypertension:: Needs reinforcement Heart Disease Patient Heart Disease Risk Factors Are:: Family history of heart disease < 65 years old, Previous cardiac event Heart Disease Response Code:: Needs reinforcement Metabolic Syndrome Patient Metabolic Syndrome Risk Factors Are [3 of 5]:: Waist circumference > 35 [female] or 40 [male], Hypertension Recommendations Include:: Encouraged follow-up with Primary Care Physician Metabolic Syndrome Response Code:: Needs reinforcement Sedentary Sedentary Response Code:: Needs reinforcement Stress Stress Response Code:: Needs reinforcement
[2021-03-22 14:24] LABS: Hemoglobin A1c 6.2 % (3.8-5.6)
[2021-03-22] MEDS: Carvedilol 25 MG Tablet PO (21:11)
[2021-03-22] MEDS: Pravastatin 80 MG Tablet PO (21:11)
[2021-03-22] MEDS: Amitriptyline 25 MG Tablet 75 MG PO (21:11)
[2021-03-23] VITALS (7 sets, daily range): BP systolic 142–174; BP diastolic 78–106; PULSE 60–72; RESP 16–18; TEMP 36.3–36.7; O2SAT 95–97
[2021-03-23] MEDS: 0.9% Normal Saline 1,000 ML 150 ML IV (01:07)
[2021-03-23 04:06] LABS: Hematocrit 40.8 % (40-54); Hemoglobin 13.8 g/dL (13.0-16.5); Mean Corp Hgb Conc 33.8 g/dL (32-36); Mean Corpuscular Hgb 31.2 pg (27.0-32.0); Mean Corpuscular Volume 92.1 fL (80-94); Platelet Count 145 K/mm3 (150-450); RBC Distribution Width CV 12.6 % (11.6-14.6); RBC Distribution Width SD 42.7 fl (35.1-43.9); Red Blood Count 4.43 M/mm3 (4.6-6.2)
[2021-03-23 04:35] LABS: ALB/GLOB Ratio 0.9 RATIO (0.9-2.4); AST(SGOT) 42 U/L (15-37); Alanine Aminotransfer ALT/SGPT 39 U/L (16-61); Albumin, Serum 3.2 g/dL (3.2-5.0); Alkaline Phosphatase 76 U/L (45-117); Anion Gap 5 (5-15); BUN 13 mg/dL (7-18); BUN/Creat Ratio 15.5 RATIO (10-20); Calcium,Total 8.5 mg/dL (8.5-10.1); Chloride 106 mmol/L (98-107); Cholesterol 112 mg/dL (200); Creatinine, Serum 0.84 mg/dL (0.70-1.30); EST Glomerular Filtration Rate 98 mL/min (>60); Est Glom Filt Rate - Afr Amer 118 mL/min (>60); Globulin 3.4 g/dL (2.2-4.2); Glucose 97 mg/dL (74-106); High Density Lipoprotein 35 mg/dL; Potassium 4.4 mmol/L (3.5-5.1); Protein, Total 6.6 g/dL (6.4-8.2); Sodium Level 139 mmol/L (136-145); Triglycerides 240 mg/dL; Very Low Density Lipoprotein 48 mg/dL (5-40)
--- NOTE | 2021-03-23 07:19 | PN.CARD_ITS ---
Subjective Subjective Patient seen and evaluated. Appears to be doing well. No complaints this morning. Objective Data Vital Signs: Vital Signs Temp Pulse Resp BP Pulse Ox 97.4 F L 60 18 174/106 H 96 03/23/21 03:11 03/23/21 04:00 03/23/21 03:11 03/23/21 03:11 03/23/21 03:11 Oxygen Delivery Method Room Air Weight: 265 lb 14.04 oz Body Mass Index (BMI) 36.0 Intake & Output: Intake and Output for Last 24 Hours 03/21/21 03/22/21 03/23/21 23:59 23:59 23:59 Intake Total 1520 / 1532 1012 / 1012 Balance 1520 / 1532 1012 / 1012 Lab / Micro Data Result Diagrams: 03/23/21 03:20 03/23/21 03:20 Labs: Laboratory Results - last 24 hr 03/22/21 08:45: WBC 4.9, RBC 4.70, Hgb 14.5, Hct 43.1, MCV 91.7, MCH 30.9, MCHC 33.6, RDW Std Deviation 42.3, RDW Coeff of Leobardo 12.6, Plt Count 154, MPV 10.1, Immature Gran % (Auto) 0.400, Neut % (Auto) 58.4, Lymph % (Auto) 25.5, [place] % (Auto) 11.0 H, Eos % (Auto) 4.1, Baso % (Auto) 0.6, Absolute Neuts (auto) 2.9, Absolute Lymphs (auto) 1.25, Nucleated RBC % 0 03/22/21 08:45: APTT 29.2 03/22/21 08:45: Sodium 137, Potassium 4.0, Chloride 106, Carbon Dioxide 24.0, Anion Gap 7, BUN 12, Creatinine 0.90, Estim Creat Clear Calc 92.21, Est GFR (MDRD) Af Amer 109, Est GFR (MDRD) Non-Af 90, BUN/Creatinine Ratio 13.3, Glucose 225 H, Calcium 8.5, Troponin I High Sens 68 03/22/21 08:45: Hemoglobin A1c 6.2 H 03/23/21 03:20: WBC 7.0, RBC 4.43 L, Hgb 13.8, Hct 40.8, MCV 92.1, MCH 31.2, MCHC 33.8, RDW Std Deviation 42.7, RDW Coeff of Leobardo 12.6, Plt Count 145 L, MPV 10.0 03/23/21 03:20: Sodium 139, Potassium 4.4, Chloride 106, Carbon Dioxide 28.0, Anion Gap 5, BUN 13, Creatinine 0.84, Estim Creat Clear Calc 98.80, Est GFR (MDRD) Af Amer 118, Est GFR (MDRD) Non-Af 98, BUN/Creatinine Ratio 15.5, Glucose 97, Calcium 8.5, Total Bilirubin 0.40, AST 42 H, ALT 39, Alkaline Phosphatase 76, Total Protein 6.6, Albumin 3.2, Globulin 3.4, Albumin/Globulin Ratio 0.9, Triglycerides 240 H, Cholesterol 112, LDL Cholesterol 29, VLDL Cholesterol 48 H, HDL Cholesterol 35 L Cardiology Labs/Tests 03/22/21 08:45: WBC 4.9, RBC 4.70, Hgb 14.5, Hct 43.1, MCV 91.7, MCH 30.9, MCHC 33.6, Plt Count 154, MPV 10.1, Immature Gran % (Auto) 0.400, Neut % (Auto) 58.4, Lymph % (Auto) 25.5, [place] % (Auto) 11.0 H, Eos % (Auto) 4.1, Baso % (Auto) 0.6, Absolute Neuts (auto) 2.9, Nucleated RBC % 0 03/22/21 08:45: APTT 29.2 03/22/21 08:45: Sodium 137, Potassium 4.0, Chloride 106, Carbon Dioxide 24.0, Anion Gap 7, BUN 12, Creatinine 0.90, Est GFR (MDRD) Af Amer 109, Est GFR (MDRD) Non-Af 90, BUN/Creatinine Ratio 13.3, Glucose 225 H, Calcium 8.5 03/22/21 08:45: Hemoglobin A1c 6.2 H 03/23/21 03:20: WBC 7.0, RBC 4.43 L, Hgb 13.8, Hct 40.8, MCV 92.1, MCH 31.2, MCHC 33.8, Plt Count 145 L, MPV 10.0 03/23/21 03:20: Sodium 139, Potassium 4.4, Chloride 106, Carbon Dioxide 28.0, Anion Gap 5, BUN 13, Creatinine 0.84, Est GFR (MDRD) Af Amer 118, Est GFR (MDRD) Non-Af 98, BUN/Creatinine Ratio 15.5, Glucose 97, Calcium 8.5, Total Bilirubin 0.40, Triglycerides 240 H, Cholesterol 112, LDL Cholesterol 29, VLDL Cholesterol 48 H, HDL Cholesterol 35 L Rhythm: EKG: ECHO: Stress Test: Cardiac Cath: PCI: CT Surgery: Holter monitor: EPS: PPM: CXR: Chest CT Scan: Radiography Diagnostic Testing: Radiology Impression Chest X-Ray 03/22/21 09:51 IMPRESSION: Hyperinflation. The lungs are clear. Electronically Signed: Shimon Rider MD at 10:14 EST , Physical Exam Const alert, oriented x3 and no apparent distress General Appearance: cooperative HEENT hearing grossly normal bilaterally Head and Scalp: atraumatic Eyes EOMs intact bilaterally Neck General: normal visual inspection Chest inspection of chest normal and palpation of chest normal Resp normal respiratory effort Auscultation: clear to auscultation bilaterally Cardio regular rate, regular rhythm, S1 normal heart sound and S2 normal heart sound Jugular Venous Distention: JVD GI normal to inspection, nondistended, normoactive bowel sounds Extremity normal capillary refill and no pedal edema Peripheral Pulses: Yes pulses 2+ throughout and femoral pulses present Skin no rashes or lesions noted Neuro oriented x3 and CN's II-XII intact bilaterally Psych Appearance: grossly normal and appropriate Assessment & Plan Assessment/Plan (1) Unstable angina: PLAN: He presented with chest discomfort suggestive of unstable angina. Cardiac catheterization performed demonstrated normal left main coronary artery: Left anterior descending artery with mid 98% stenosis noted. Left circumflex artery previously stented with mild diffuse disease. Ramus intermedius with mild diffuse disease. Right coronary artery which is dominant previously stented and no evidence of in-stent stenosis. Based on the above angiographic findings the patient underwent PCI of the left anterior descending artery successfully. The plan will be to continue him on his current medical therapy and start cardiac rehabilitation. (2) History of coronary artery stent placement: PLAN: He does have a history of known coronary artery disease status post previous angioplasty and stent placement. (3) Essential (primary) hypertension: PLAN: He does have a hypertension which does not appear to be very well controlled. We would relook at his medications and aggressively make changes. (4) Hyperlipidemia: QUALIFIERS: Hyperlipidemia type: pure hypercholesterolemia Qualified Code(s): E78.00 - Pure hypercholesterolemia, unspecified; E78.0 - Pure hypercholesterolemia PLAN: He will continue with aggressive risk factor modification. Thank you for allowing me to participate in the care of your patient. Please don't hesitate to call if any issues arise. He is stable to be discharged today.
[2021-03-23] MEDS: DULoxetine Hcl 60 MG Capsule PO (08:42)
[2021-03-23] MEDS: Aspirin E.C. 81 MG Tablet PO (08:42)
[2021-03-23] MEDS: Carvedilol 25 MG Tablet PO (08:43)
[2021-03-23] MEDS: Losartan Potassium 100 MG Tablet PO (08:43)
[2021-03-23] MEDS: Enoxaparin 40 MG/0.4 ML Syringe SC (08:43)
[2021-03-23] MEDS: Clopidogrel Bisulfate 75 MG Tablet PO (08:43)
--- NOTE | 2021-03-23 10:00 | EKG12_ITS ---
Test Reason : AM EKG Blood Pressure : / mmHG Vent. Rate : 067 BPM Atrial Rate : 067 BPM P-R Int : 214 ms QRS Dur : 080 ms QT Int : 366 ms P-R-T Axes : 047 -32 -03 degrees QTc Int : 386 ms Sinus rhythm with 1st degree A-V block Left axis deviation Nonspecific T wave abnormality Abnormal ECG When compared with ECG of 22-MAR-2021 13:43, MANUAL COMPARISON REQUIRED, DATA IS UNCONFIRMED Confirmed by MATT BLANCO, MELISSA ([id number]), editor index PARAMJIT MEADE ([id number]) on 03/24/2021 8:32:40 AM Referred By: MATT Confirmed By:MELISSA GUTIERREZ MD
--- NOTE | 2021-03-23 10:45 | CASEMGMT ---
RN CM Face to Face with patient for initial transition planning/care coordination assessment. RN CM introduced self and role at [facility]. Patient sitting in chair, alert and oriented, at bedside. Patient willing to participate in assessment and is able to answer all questions appropriately. Care providers, pharmacy, and demographics verified. Patient wishes to discharge home, denies need for home health at this time. Patient states he has no further needs or concerns at this time. CM to follow for discharge planning needs that may arise. 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 Patient states he is independent at home. Transportation: self, DME/HHC: Patient states he has Bipap at home but does not wear. Patient denies previous HHC or SNF. Disposition Plan: Patient to discharge home with family support and follow-up plans in place. Breanna ORTIZ, RN, CM
--- NOTE | 2021-03-23 11:40 | DS.PCM_ITS ---
Providers Date of Admission: 03/22/21 Date of Discharge: 03/23/21 Primary Care Physician: Dr. Arley Martinez DO Reason For Visit: UNSTABLE ANGINA Diagnosis Discharge Diagnosis (1) Unstable angina: Status: Acute Code(s): I20.0 - Unstable angina (2) History of coronary artery stent placement: Status: Resolved Code(s): Z95.5 - Presence of coronary angioplasty implant and graft (3) Essential (primary) hypertension: Status: Chronic Code(s): I10 - Essential (primary) hypertension (4) Hyperlipidemia: Status: Chronic Code(s): E78.5 - Hyperlipidemia, unspecified Qualifiers: Hyperlipidemia type: pure hypercholesterolemia Qualified Code(s): E78.00 - Pure hypercholesterolemia, unspecified; E78.0 - Pure hypercholesterolemia Medications at Discharge Home Medications amitriptyline 75 mg tablet 75 mg PO QHS 10/27/17 aspirin 81 mg tablet,delayed release 81 mg PO DAILY 10/27/17 cholecalciferol (vitamin D3) 50 mcg (2,000 unit) tablet 2,000 unit PO DAILY 10/27/17 clopidogrel 75 mg tablet 75 mg PO DAILY 10/27/17 duloxetine 60 mg capsule,delayed release 60 mg PO DAILY 10/27/17 nitroglycerin 0.4 mg sublingual tablet 0.4 mg SUBLINGUAL Q5-15M PRN 10/27/17 pravastatin 80 mg tablet 80 mg PO DAILY 10/27/17 omega-3 fatty acids 1,000 mg capsule 1,000 mg PO DAILY 11/02/17 biotin 5 mg capsule 5 mg PO DAILY 11/12/19 carvedilol 25 mg PO BID 03/22/21 losartan 100 mg PO DAILY 03/22/21 Hospital Course Operations None Procedures Cardiac catheterization (LAD stent placed) Summary of Care Provided Minutes Spent on Discharge: 25 Hospital Course: Mr. Saxena is a 65-year-old white male who presented to the emergency department at [facility] on 03/22/2021 with a chief complaint of chest discomfort. The patient reported initially that it started on the morning admission but with subsequent questioning admitted that he had a few episodes-ap proximately 3-the day prior that resolved with rest. He stated that he got up on the morning of admission and was getting ready for work and had recurrent symptoms after going up a flight of stairs that did not brett with rest and therefore decided to come to the emergency department. He also had associated diaphoresis and shortness of breath. Given his chest discomfort on arrival an EKG was performed in the emergency department and showed inferior lateral ST depression. He was given sublingual nitro and had improvement with his chest pain and subsequent improvement in his EKG with resolution of his ST depression. Cardiology was contacted and he was taken to the [facility] urgently for unstable angina. In the [facility] he was found to have severe single-vessel mid LAD disease with mild diffuse disease and other vessel and patency of his previously stented vessels to include his circumflex and his RCA. His ejection fraction was preserved and PCI was performed at that time. His initial troponin was found to be 68 and therefore not elevated. The only other remarkable finding on his lab work was a nonfasting blood sugar of 225 for which a hemoglobin A1c was performed. His hemoglobin A1c during his hospitalization was found to be 6.2 which is consistent with insulin resistance/prediabetes. This was discussed with the patient and a 10 to 15 pound weight loss was recommended. I do suspect if he can lose weight that this will improve. We did recommend he follow-up with his primary care physician with regards to this and his other medical issues. We repeated his lipids during his hospitalization and it showed a total cholesterol of 112 with an LDL of 29 and HDL of 35 and a triglyceride level of 240. I suspect his triglycerides are elevated secondary to his hyperglycemia and if his blood sugars improved with weight loss then his triglyceride level will likely improve as well. He was discharged home on aspirin, Plavix, Coreg, losartan, and his pravastatin was continued at the current dose. He was seen by cardiac rehab prior to discharge and will be called for continued therapy. 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 Discharge diagnoses: Unstable angina-resolved Severe LAD stenosis status post PCI Hyperglycemia with an elevated hemoglobin A1c indicating insulin resistance Coronary artery disease Hyperlipidemia Hypertension Fibromyalgia Obesity with a BMI of 36.1 History of nephrolithiasis History of tobacco abuse Physical Exam Const alert, oriented x3, no apparent distress and well nourished Constitutional Narrative: Obese upper middle-aged white male sitting up in bed watching television, appears comfortable, nontoxic General Appearance: cooperative, comfortable, well kempt and well developed Orientation / Consciousness: awake Exam Limitations: no limitations Nutritional Appearance: obese HEENT normocephalic, head/scalp atraumatic, hearing grossly normal bilaterally and moist oral mucous membranes HEENT Narrative: Mallampati 3, no thrush, dentition is fair Eyes Eyes Narrative: No scleral icterus Resp normal respiratory effort, no retractions, no use of accessory muscles and clear to auscultation bilaterally Auscultation: Negative for crackles, rales, rhonchi or wheezes Cardio regular rate, regular rhythm, S1 normal heart sound, S2 normal heart sound, no murmurs, no rub, no gallops, no clicks and no JVD GI normal to inspection, nondistended, normoactive bowel sounds, soft to palpation, non-tender and non-distended GI Narrative: Obese Extremity no clubbing, cyanosis or edema Skin no petechiae and no mottling Neuro oriented x3, CN's II-XII intact bilaterally, moves all extremities and no focal motor deficits Sensorium / Orientation: awake and alert Speech: speech normal Motor Exam: strength 5/5 throughout Psych Psych Narrative: Very pleasant Weight / BMI Weight Weight: 120.6 kg Body Mass Index (BMI) 36.0 ABG / Lab / Microbiology Data Result Diagrams: 03/23/21 03:20 03/23/21 03:20 Laboratory: Laboratory Results - last 24 hr 03/22/21 08:45: Hemoglobin A1c 6.2 H 03/23/21 03:20: WBC 7.0, RBC 4.43 L, Hgb 13.8, Hct 40.8, MCV 92.1, MCH 31.2, MCHC 33.8, RDW Std Deviation 42.7, RDW Coeff of Leobardo 12.6, Plt Count 145 L, MPV 10.0 03/23/21 03:20: Sodium 139, Potassium 4.4, Chloride 106, Carbon Dioxide 28.0, Anion Gap 5, BUN 13, Creatinine 0.84, Estim Creat Clear Calc 98.80, Est GFR (MDR D) Af Amer 118, Est GFR (MDRD) Non-Af 98, BUN/Creatinine Ratio 15.5, Glucose 97, Calcium 8.5, Total Bilirubin 0.40, AST 42 H, ALT 39, Alkaline Phosphatase 76, Total Protein 6.6, Albumin 3.2, Globulin 3.4, Albumin/Globulin Ratio 0.9, Triglycerides 240 H, Cholesterol 112, LDL Cholesterol 29, VLDL Cholesterol 48 H, HDL Cholesterol 35 L D/C Instructions Discharge Diet: Low fat / Low cholesterol and 1800 Calorie Control Diet Discharge Activity: Return to Normal Activity Return to work on: 03/29/21 Meaningful Use Info Meaningful Use Diagnoses (Choose all that apply): None applicable Discharge Plan Admission Admit Date/Time: 03/22/21 13:23 Primary Reason for Your Visit: Chest pain Attending Provider: Rush Francisco Primary Care Provider: Arley Martinez Instructions Additional Instructions / Restrictions: 1. Your hemoglobin A1c, which is a 3-month average of your blood sugar, was found to be 6.2 which is consistent with prediabetes/insulin resistance--> as discussed during her hospitalization we do recommend 10 to 15 pound weight loss and dietary restriction to decrease carbohydrates and sugar intake. -Please follow-up with your primary care physician with regards to this 2. Start cardiac rehab as per instructions during your admission Discharge Orders/Prescriptions Prescriptions: Continued omega-3 fatty acids [Fish Oil Concentrate] 1,000 mg capsule 1,000 mg PO DAILY RF: 0 clopidogrel 75 mg tablet 75 mg PO DAILY RF: 0 duloxetine [Cymbalta] 60 mg capsule,delayed release(DR/EC) 60 mg PO DAILY RF: 0 pravastatin 80 mg tablet 80 mg PO DAILY RF: 0 aspirin 81 mg tablet,delayed release (DR/EC) 81 mg PO DAILY RF: 0 nitroglycerin [Nitrostat] 0.4 mg tablet, sublingual 0.4 mg SUBLINGUAL Q5-15M PRN (Reason: Chest Pain) RF: 0 amitriptyline 75 mg tablet 75 mg PO QHS RF: 0 cholecalciferol (vitamin D3) 2,000 unit tablet 2,000 unit tablet 2,000 unit PO DAILY RF: 0 biotin 5 mg capsule 5 mg PO DAILY RF: 0 carvedilol 25 mg tablet 25 mg PO BID RF: 0 losartan 100 mg tablet 100 mg PO DAILY RF: 0 Referrals / Follow Up: Rush Francisco MD [STAFF PHYSICIAN] - See Referral Note (As scheduled by the offic cody) Arley Martinez DO [Primary Care Provider] - Within 2 Weeks Disposition Disposition (needs filled in before D/C Order can be placed): Home, Self Care Charges/Coding Visit Charges Inpatient E&M: 95416 Disch Hosp
== END 2021-03-23 12:37 | disposition home or self-care (01) | DRG 247 ==
LOC: ED 10:36 → CLSP 10:53 → PCU 13:58
PROVIDERS: Internal Medicine; Specialist; Admitting Provider Internal Medicine Cardiovascular Disease; Emergency Provider Emergency Medicine; PCP Family Medicine; Visit Provider Internal Medicine Cardiovascular Disease
DX: I25.110 Atherosclerotic heart disease of native coronary artery with unstable angina pectoris (principal); E66.9 Obesity, unspecified; E78.00 Pure hypercholesterolemia, unspecified; I10 Essential (primary) hypertension; E78.5 Hyperlipidemia, unspecified; M79.7 Fibromyalgia; I25.2 Old myocardial infarction; Z87.891 Personal history of nicotine dependence; Z79.82 Long term (current) use of aspirin; Z79.02 Long term (current) use of antithrombotics/antiplatelets; R73.9 Hyperglycemia, unspecified; Z68.36 Body mass index [BMI] 36.0-36.9, adult; R73.03 Prediabetes; Z87.442 Personal history of urinary calculi
CPT/HCPCS: 36415; 71045; 80048; 80053; 80061; 83036; 84484; 85025; 85027; 85730; 92928; 93005; 93458; 99152; 99153; 99251; 99285; C1874; J7030; Q9967; A4216; C1725; C1769; C1887; C1894; C9600; G0463

== ENCOUNTER 2021-04-08 08:57 | Outpatient (CLI) | payer OTHER, SELFPAY ==
--- NOTE | 2021-04-08 09:02 | PCM.CR.ITP ---
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 Personal Learning Style:: Written Barriers to Learning: Vision Impairment Stage of change r/t lifestyle modifications:: Action Gave educational material for:: Treating Heart Disease, Emotions & Heart Disease, Stress Management & Relaxation, Sleep Disorders & Heart Disease, How The Heart Works, What it means to have Heart Disease, How Coronary Artery Disease is Diagnosed, Heart Procedures, What Heart Medications Do, Risk Factors & Modifications, Living an Active Life, Nutrition - Education/Goals Individual Counseling: Initial Assessment: Abnormal Cholesterol Levels, High Blood Pressure, Overweight/Obesity Cardiac Rehabilitation Goals: 1. Maintain the individual as the primary focus of care. 2. To improve the patient's quality of life. 3. Identification of cardiac risk factors and provide cardiac risk factor management. 4. Enhance the psychosocial status of the patient. 5. Reconditioning enough to allow the patient to resume customary activities. 6. Control symptoms of cardiac disease Personal Goals: Initial Assessment: Improve energy level, Participate in home exercise program, Get back to work, or to resume activities faster, Improve diet and eating habits (eat healthier), Control risk factors (learn risk factor modification) Scale for measuring improvement of personal goals: Enter appropriate number in Comments. 2 = Unchanged. 3 = Slightly Better. 4 = Moderate Improvement. 5 = Met my Goal - Diagnosis & Disease Process Outcomes/Goals: Pt IDs own risk factors & lifestyle modifications by Session 10, Verbalizes symptoms of angina & response by session 3., Pt independently manages Plan/Interventions: Assist Pt to ID & engage in lifestyle modification to reduce CVD risk, Instruct on individual risk factors, Review symptoms of angina & emergency actions, Review secondary diagnosis & identify educational needs. - Safety Referral to Physical Therapy: No Referral to [facility] Case Management: No Fall Risk Assessed:: Yes Assistive Devices:: None Exercise - Initial Assessment - Visit Date of Eval: 04/08/21 Session #:: 0 - pre-cardiac rehab evaluation Mets: Pre-: >7 METS for 30 minutes by discharge - Physician Prescribed Exercise Modalities: Treadmill, Rower, Airdyne Frequency: 3x/week for 12 weeks [36 sessions] Intensity: 60-80% of age predicted maximum heart rate reserve Current METSs:: 4.0 Target Heart Rate:: 102-133 Resting Blood Pressure: 174/106 EKG Type: Sinus Rhythm with first degree AV block Current Physical Activity or Exercising minutes: Currently very active at home - Outcomes & Goals Goals:: Verbalizes understanding of THR, RPE & goal METS by session 6, Documents in home exercise log/reports 30 min aerobic 5 day/wk by DC, Demonstrates accurate pulse taking by DC - Intervention & Plan Exercise Program Goals: Instruct on personal THR & RPE, Instruct on MET level & personal MET goal, Show patient to take own pulse /validate performance until accurate, Instruct on home exercise - Physical Activity Home Exercise Physical Activity - Home Exercise: Safe Exercise, Warm-up, Self-monitoring, Cool-Down, Home Exercise > 30 min Daily, Sitting Time <3 hours/daily - Outcomes & Goals Outcomes/Goals: Demonstrates correct Warm-up/exercise Cool-Down (S3) if = 2.5 METs, Verbalizes symptoms of exercise intolerance by Session 3 (S3), Demonstrate safe equipment use (S3) & follows exercise prescrition (6) - Intervention & Plan Plan/Intervention: Instruct warm-up & cool-down if exercising at > 2 METs, Instruct on symptoms of exercise intolerance & actions to take, Instruct & monitor on saf, Assess intial functional capacity & safety risk Nutrition - Initial Assessment - Program Goals Nutrition Program Goals: LDL <100 optimal. 100 - 129 Near optimal. 130 - 159 Borderline High. 160 - 189 High. Total Cholesterol <200 desirable. 200 - 239 Borderline High. >/= 240 High. HDL < 40 Low >/=60 High. Triglycerides <150 desirable. <199 optimal. VlDL 5 - 40. HgbA1C <7%. BMI <25 Patient has diagnosis of Hyperlipidemia (ICD E78)?: Yes - Visit Date of Assessment:: 04/08/21 Session #:: 0 - pre-cardiac rehab evaluation - Cholesterol/Lipids Triglycerides (mg/dL): 240 Total Cholesterol (mg/dL): 112 LDL Cholesterol (mg/dL): 29 HDL Cholesterol (mg/dL): 35 Determine presence & major risk factors that modify LDL goal: Hypertension or hypertensive medication, Low HDL cholesterol <40 mg/dL*, Family history of premature CHD in Male < 55 years: female <65 yearsFa, Age men > 45 years; women >/= 55 years Outcomes/Goals: Pt IDs own risk factors & lifestyle modifications by Session 10, Verbalizes symptoms of angina & response by session 3., Pt independently manages Intervention/Plan: Instruct on personal lipid levels & lipid goals/NCEP guidelines, Instruct on cholesterol Referral to dietitian:: Yes - Medical Nutrition Therapy & Why Weight - Diabetes (Other Core Measures) Diabetes Type: Not Applicable - Weight Mgt (Other Care) Not Applicable: No Height: 6 ft Weight:: 265 lb BMI: 35.9 Diagnosis Overweight/Obesity BMI> 30% ICD-10 E66: Yes Diagnosis High BMI/Morbid Obesity BMI> 35% ICD-10 Z68: Yes Outcomes/Goals: Pt sets, maintains & shows weight loss goal & trend during rehab Intervention/Plan: Instruct on ideal BMI & set weight loss goal w/patient, Assist pt to ID & incorporate diet changes for weight loss by S9, Refer to Structured Weight Loss program as appropriate, Encourage goal of using 250-300dcal per session for weight loss - Healthy Eating Habits Will attend diet classes:: Yes Outcomes/Goals:: Consume diet rich in vegs,fruits,whole grain/high fiber,fish,lean meat, Limit sat/trans fats,cholesterol & added salts & sugars Intervention/Plan:: Assess current eating habits - Education Gave educational materials for:: Healthy eating Nutrition - 30-Day Assessment Nutrition - 60-Day Assessment Nutrition - 90-Day Assessment Nutrition - Final Assessment Medical - Initial Assessment - Visit Date of Eval: 04/08/21 Session #:: 0 - pre-cardiac rehab evaluation - Medication Compliance Preventative Medication(s):: Aspirin, Clopidogrel/P2Y12 inhibit, Statin/lipid, Beta seda H/O mental health issues: depression, anxiety, or addiction?: No Doesn?t believe in the benefits of treatment?: No Believes medications are unnecessary or harmful?: No Has a concern about medication side effects?: No Expresses concern over the cost of medications?: No Outcomes/Goals: Verbalizes medications,desired effect & common side effects @ DC, Pt self-reports following medication regimen, Keeps card in wallet w/medications listed by DC Interventions/plans: Instruct on medication effects & side effects, Review medication list w/patient every two weeks, Instruct importance of taking meds as ordered & assist problem solving - Tobacco Use Tobacco Use: Non-smoker - Hypertension Hypertension Diagnosis:: Hypertension ICD-10 I10 Resting Blood Pressure:: 174/106 - ? White coat syndrome ? [place] [employer] Hypertension Guidelines: [place] [employer] Hypertension Guidelines. Normal BP Less than 120/80. Elevated BP 120/80. Hypertension Stage 1: BP 130-139/80-89. Hypertesnion Stage 2: BP 140 or higher/90 or higher. Hypertension Crisis: BP higher than 180/120 Outcomes/Goals: Able to verbalize/achieve optimal blood pressure <130/80, Incorporates diet changes & exercise for blood pressure control by DC Interventions/plan: Instruct on optimal blood pressure, hypertension & medications, Instruct on effects of sodium, alcohol, stress, exercise &hypertension - Tobacco Cessation Referral Smoking Cessation Referral:: No Individual Education/Counseling:: No Education Schedule Given:: Yes - Online resource explained and printed book provided to patient Medical- 30-Day Assessment Medical- 60-Day Assessment Medical- 90-Day Assessment Medical - Final Assessment Psychosocial - Initial Assess - VIsit Date of Eval: 04/08/21 Session #:: 0 - pre-cardiac rehab evaluation Not Applicable: Yes History of previous Mental disease:: No - Psychosocial Test Tool Used:: [email or web address] QOL Cardiac, PHQ-9 Questionnaire phq-9 Severity: Severity. 1-4 Minimal Depression. 5-9 Mild Depression. 10-14 Moderate Depression. 15-19 Moderately Sever Depression. 20-27 Severe Depression. Rule: - Referral to Behavioral Health PS - Interventions: Yes Attend Stress Management Classes, No Referral to Behavioral Health if PHQ-9 score >9:, No Referral to [facility], No Referral to Physician if PHQ-9 if score is 5-9: - Outcomes/Goals: See list Psychosocial Outcomes/Goals:: ID's personal stressors & 2 strategies to manage stress by discharge - Intervention/Plan: See List Interventions/Plan:: Assess stressors,coping strategies & signs of derpression on admission, Instruct/assist pt to develop coping & personal stress Mgt strategies, Instruct patient to recognize signs & symptoms of depression, Instruct patient to recog Psychosocial - 30-Day Assess Psychosocial - 60-Day Assess Psychosocial - 90-Day Assess Psychosocial - Final Assessmen Patient Health Questionnaire Initial Assessment 1. Little interest or pleasure in doing things: Not at all 2. Feeling down, depressed, or hopeless: Not at all 3. Trouble falling or staying asleep, or sleeping too much: Several days 4. Feeling tired or having little energy: Nearly every day 5. Poor appetite or overeating: Not at all 6. Feeling bad about yourself -- or that you are a failure or have let yourself or your family down: Not at all 7. Trouble concentrating on things, such as reading the newspaper or watching television: Not at all 8. Moving or speaking so slowly that other people could have noticed. Or the opposite - being so fidgety or restless that you have been moving around a lot more than usual: Not at all 9. Thoughts that you would be better off , or of hurting yourself in some way: Not at all How difficult have these problems made it for you to do your work, take care of things at home, or get along with other people?: Somewhat difficult Total Score: 4 SABAS-Q SV Test - Statements CAD is a disease of the arteries in the heart: False Examples of risk factors for heart disease: True Angina is chest pain or discomfort: True The benefits of resistance training include: True Eating more meat and dairy products: False Anti-platelet medications such as aspirin are important: True The only effective way to manage stress: False An exercise warm-up slowly increases heart rate: True Prepared, processed foods usually have high sodium: True Depression is common after a heart attack: True The statin medications lower cholesterol: True To control blood pressure, lower the amount of sodium: True If someone gets chest discomfort during walking: False Transfats are partially hydrogenated vegetable oils: True Sleep apnea that is not treated increases the risk: False To control cholesterol, one should become a vegetarian: False Someone knows if he/she is exercising at the right level: True Diabetes cannot be prevented with exercise & health eating: False Stress is a large risk for heart attack: True A diet that can help lower blood pressure is rich in: True - Total Score Total Correct Responses: 20 Self-Efficacy Initial Assessment We would like to know how confident you are in doing certain activities. Please select your confidence level for:: Select your confidence level for the following using the scale 1-10 where 1 is not at all confident and 10 is totally confident. Your score is the average of all 6 responses. Fatigue: How confident are you that you can keep the fatigue caused by your disease from interfering with the things you want to do? Select Number: 4 Physical Discomfort or Pain: How confident are you that you can keep the physical discomfort or pain of your disease from interfering with the things you want to do? Select Number: 8 Emotional Distress: How confident are you that you can keep the emotional distress caused by your disease from interfering with the things you want to do? Select Number: 8 Other Symptoms or Health Problems: How confident are you that you can keep other symptoms or health problems from interfering with the things you want to do? Select Number: 7 Different Tasks and Activities: How confident are you that you can do the different tasks and activities needed to manage your health condition so as to reduce your need to see a doctor? Select Number: 9 Medication: How confident are you that you can do things other than just taking medication to reduce how much your illness affects your everyday life? Select Number: 8 Total Score:: 7 Nutrition Survey - Nutrition Survey Initial Have you lost >10 lbs over the past 2 months without trying?: No Are you following a special diet at home for diabetes, low fat, or low salt?: No Are you interested in meeting with a dietitian for help understanding your diet?: Yes Do you eat less than 3 meals a day?: No Do you eat fatty meats (ross, sausage, ribs, etc), fried foods, desserts, large amounts of salad dressings, margarine, butter, or cheese most days?: Yes Do you have food allergies? [Enter types in comment field]: No Do you eat in restaurants more than 3 times a week?: No Do you season food with salt, seasoning salt, or garlic salt?: Yes Do you used canned, boxed, frozen meals, or soups, seasoning packets?: Yes - HYperglycemia event, pure hyercholestrerolemia, hypertension, BMI 36 Total Score:: 4
--- NOTE | 2021-04-08 09:02 | PCM.CR.HP2 ---
CR - History & Physical - General Arrival date:: 04/08/21 Arrival time:: 09:04 Date of Referral:: 03/22/21 Date of CR Evaluation:: 04/08/21 Referring Physician: Dr. Rush Francisco Primary Diagnosis: PCI w/coronary stenting - History of Present Cardiac Event Onset Date: Enter Onset Date of cardiac illnesses in Comment field below Acute Myocardial Infarction within 12 months:: Yes - NSTEMI 98% occlusion warning signs were evident PTCA or coronary stenting:: Yes - presence of coronary angioplasty implant & graft 03/22/2021 Type of Symptoms:: Having some angina pain, unstable angina, one event very severe had to sit for an hour to go away. Then on Monday monring went down basement steps came back up and pain was very severe, radiating to jaw , neck and arm and wouldn't go away. - Sleep Disorder Evaluation Hx of Sleep Apnea: Yes Do you snore loudly (louder than talking or can be heard through closed doors)?: Yes Do you often feel tired/ fatigued/ sleepy during daytime?: Yes Has anyone observed you stop breathing during sleep?: No History of Hypertension (for STOP score): Yes - Had a Bi PAP unit at home used for a couple of years but quit using. STOP Results: Positive - Medications Home Medications: Ambulatory Orders Medication Instructions Recorded amitriptyline 75 mg tablet 75 mg PO QHS 10/27/17 aspirin 81 mg tablet,delayed 81 mg PO DAILY 10/27/17 release cholecalciferol (vitamin D3) 50 2,000 unit PO DAILY 10/27/17 mcg (2,000 unit) tablet clopidogrel 75 mg tablet 75 mg PO DAILY 10/27/17 duloxetine 60 mg capsule,delayed 60 mg PO DAILY 10/27/17 release nitroglycerin 0.4 mg sublingual 0.4 mg SUBLINGUAL Q5-15M PRN 10/27/17 tablet pravastatin 80 mg tablet 80 mg PO DAILY 10/27/17 omega-3 fatty acids 1,000 mg 1,000 mg PO DAILY 11/02/17 capsule biotin 5 mg capsule 5 mg PO DAILY 11/12/19 losartan 100 mg PO DAILY 03/22/21 carvedilol 25 mg tablet 25 mg PO BID #180 tab 03/26/21 - Allergies Allergies/Adverse Reactions: Allergies bee venom protein (honey bee) Allergy (Severe, Verified 03/22/21 09:42) Anaphylaxis lisinopril Adverse Reaction (Intermediate, Verified 03/22/21 09:42) cough Advanced Directives - Advanced Directives Power of Control Panel Assembler: Yes - is his RAGHAVENDRA for healthcare decisions. Living Will: Yes Advance Directives Information Provided: No Advance Directives on File: Yes DNR Order?:: No - MOLST See MOLST form: No Past Medical History - Covid-19 Screening Fever: No Unexplained muscle aches: No Current respiratory symptoms: No Upper respiratory infections symptoms: No Gastro-intestinal symptoms: No Ryz-[id number]-[id number] symptoms: No Has tested positive for COVID-19 in last 30 days: No Date of testin04/20/20 - Had [place] vaccines and the booster vaccine Had contact w/person w/symptoms or Covid-19 (+) last 14 days: No Has High Risk Exposures ID'd by Health dept/Inf Control team: No 65 years or older:: No Lives in Assisted Living facility:: No Has a chronic lung disease or moderate to severe asthma:: No Has a serious heart condition:: Yes Immunocompromised:: No Severely obese (Body Mass Index of 40 or higher):: No Diabetic:: No Has chronic kidney disease undergoing dialysis:: No Has liver disease:: No - Past Medical Illness Medical History: Past Medical History (Last Reviewed 03/22/21 @ 13:[address] Alejandra Charles, DO) Atherosclerosis of coronary artery of [place] heart without angina pectoris I25.10 Essential (primary) hypertension I10 Fibromyalgia M79.7 History of diverticulitis Z87.19 History of inferior wall myocardial infarction Onset Date: 07/2009 I25.2 Hyperglycemia R73.9 Hyperlipidemia E78.5 Obesity E66.9 - Past Surgical History Surgical History: Past Surgical History (Last Updated 03/22/21 @ 14:13 by Megan Boyle) History of colon resection Onset Date: 06/2012 Z90.49 History of coronary artery stent placement Onset Date: 03/22/21 Z95.5 PCI-VICTOR MANUEL-Mid LCx w/ 3.0 x 23 mm Promus Stent 08/14/2009; [id number] RCA 08/2009; PCI-VICTOR MANUEL-Mid LAD w/ 4.0 x 13 mm [facility] MR Stent 03/22/2021 History of herniorrhaphy Onset Date: 11/2018 Z98.890, Z87.19 History of left heart catheterization Onset Date: 03/05/10 Z98.890 VICTOR MANUEL to mid CX in 2009 History of lithotripsy Z98.890 History of tonsillectomy Z90.89 - Family History Summary Family History: Family History (Last Reviewed 03/22/21 @ 13:[address] Alejandra Charles DO) Father CAD (coronary artery disease) Mother , 84 Colon cancer Cancer lung Social History - Smoking History Smoking Status: Former smoker Hx Smoking Cessation Date: 03/23/08 Hx Tobacco Use: Yes Hx Smoking Exposure: No - Alcohol Use Alcohol Usage: No - Substance Abuse Hx Substance Use: No - Occupation Occupation (List type of work in comments):: Employed Hours worked per day:: 8 - Hobbies, Recreation, Social Activities Hobbies: Sports, Exercise - [employer] [place] [employer], [employer] sports etc. Recreational Activities: I am able to engage in most, but not all activities Social Environment - Status Marital Status: - Current Living Arrangements Living Environment:: Spouse - Children How many children do you have?: 3 - sons Do any of your children live nearby?: Yes - [facility] - Safety Do you feel safe in your surroundings?: Yes - Assistance Do you need any assistance at home?: no Review of Systems - Review of Systems Hints: Right click = Denies (Slash). Left click = Reports ([place]) Review of Present Symptoms: Reports: Shortness of Breath with Exertion, Fatigue, Appetite - Normal - good apetite, Appetite - Special Diet - try to, but probably not waht we should be doing, Sleep - Normal. Denies: Shortness of Breath at Rest, Angina, Dizziness/Lightheadedness, Heart Arrhythmia/Irregularities, Sexual Changes - Pain Is Patient Pain Free?: Yes Pain Location: back, upper extremity - back wrist hands arthritic pain from arthritis Risk Factor Assessment - Chief Complaint Chief Complaint: Patient is a 65 yr old male patient of Dr. Francisco who presentst o cardiac rehab today following recent PCI intervention with coronary stenting. - Vital Signs Temperature: 97.4 F Respiratory Rate: 16 Pulse Ox: 96 Blood Pressure: 174/106 Nailbeds:: pink in color - Pulse Pulse Rate: 60 Pulse Rhythm: Regular - Hypertension How long have you been treated?: 15 On medication(s)?: yes Blood Pressure Sitting - Left Arm: 174/106 - Blood Cholesterol/Lipids Total Cholesterol (mg/dL) Goal = less than 200 mg/dL: 112 - 03/23/2021 HDL Cholesterol (mg/dL) Goal = less than 40 mg/dL: 35 LDL Cholesterol (mg/dL) Goal = less than 70 mg/dL: 29 Triglycerides (mg/dL) Goal = less than 150 mg/dL: 240 - Obesity Height: 6 ft Weight:: 265 lb Weight in Pounds: 265.0 lbs Weight Source: Stated by Patient Body Mass Index (BMI): 35.9 Nutritional Referral for Obesity: Yes - Why Weight - structured weight loss program - Risk Stratification Risk Guidelines: Lowest Risk: Risk Factor for Smoking, Risk Factor for Dyslipidemia, Risk Factor for Diabetes, Risk Factor for Sedentary Lifestyle, Risk Factor for Depression, Highest Risk: Risk Factor for Obesity, Risk Factor for Hypertension - Family History Family History: Family History (Last Reviewed 03/22/21 @ 13:[address] Alejandra Charles, DO) Father CAD (coronary artery disease) Mother Colon cancer Cancer Motivation - Motivation to Participate On a scale of 1 to 10, how prepared are you to commit to attending program?: 8 - Belongs to [place] [employer] What do you see as the benefits of succesfully completing the program? In other words, what do you hope to get out of participating in the program?: more energy, stronger, feeling more healthy Do you have a spouse or signficant other, family or friends who will help support you to complete the program?: yes
[2021-04-08 09:22] VITALS: BP 174/106; BMI 35.9
[2021-04-08 09:35] VITALS: BP 174/106; PULSE 60; RESP 16; TEMP 36.3; O2SAT 96; BMI 35.9
== END 2021-04-08 23:59 | disposition home or self-care (01) ==
LOC: CR 08:57
PROVIDERS: PCP Family Medicine; Referring Provider Internal Medicine Cardiovascular Disease; Visit Provider Internal Medicine Cardiovascular Disease
DX: E66.9 Obesity, unspecified (principal); I10 Essential (primary) hypertension; E78.00 Pure hypercholesterolemia, unspecified

== ENCOUNTER 2021-04-19 09:30 | Outpatient (RCR) | payer OTHER, SELFPAY | END 2021-04-19 23:59 | LOC: CR 09:30 | PROVIDERS: PCP Family Medicine; Referring Provider Internal Medicine Cardiovascular Disease; Visit Provider Internal Medicine Cardiovascular Disease | DX: I25.10 Atherosclerotic heart disease of native coronary artery without angina pectoris (principal); I20.0 Unstable angina; I25.2 Old myocardial infarction; Z95.5 Presence of coronary angioplasty implant and graft; I10 Essential (primary) hypertension; E78.00 Pure hypercholesterolemia, unspecified; R73.9 Hyperglycemia, unspecified | CPT/HCPCS: 93798 ==

== ENCOUNTER 2021-04-29 12:32 | Outpatient (CLI) | payer OTHER, SELFPAY ==
--- NOTE | 2021-04-29 12:35 | ECHOD_ITS ---
Reason For Study: MURMUR Procedure This was a 2D Doppler, Color Flow transthoracic echocardiogram. Exam performed in department. Left Ventricle Normal LV size. Moderate concentric left ventricular hypertrophy. Left ventricular systolic function is normal. The estimated ejection fraction is 65 %. Stage 1 diastolic dysfunction. No regional wall motion abnormalities noted. Right Ventricle Normal RV size. Normal systolic function. Atria Normal left atrium. Normal right atrium. Mitral Valve Normal mitral valve. Tricuspid Valve Normal tricuspid valve. Mild tricuspid valve insufficiency. Pulmonary artery systolic pressure is 24 mmHg. Aortic Valve Trisinus/trileaflet aortic valve. Mild focal aortic valve calcification. Peak aortic valve gradient 20 mmHg. Mean aortic valve gradient 11 mmHg. Pulmonic Valve Normal pulmonic valve. Great Vessels Normal aortic root. The pulmonary artery is normal size. Normal inferior vena cava. Pericardium/Pleural No pericardial effusion. MMode/2D Measurements & Calculations LVIDd: 4.8 cm IVSd: 1.4 cm LVOT diam: 2.4 cm LVIDs: 3.2 cm LVPWd: 1.4 cm LVOT area: 4.5 cm2 RVDd: 3.8 cm FS: 33.1 % Ao root diam: 3.5 cm LAV(MOD-bp): 55.2 ml LA A4 area: 17.2 cm2 LAV(MOD-bp) Indexed: 23.1 ml/m2 LAV(MOD-sp2): 46.9 ml LAV(MOD-sp4): 46.2 ml LA dimension(2D): 4.2 cm RA A4 area: 16.0 cm2 Time Measurements MV dec time: 0.23 sec Doppler Measurements & Calculations MV E max pepito: 69.1 cm/sec Lat Peak E' Pepito: 7.3 cm/sec Med Peak E' Pepito: 6.1 cm/sec MV A max pepito: 83.3 cm/sec E/E' lat: 9.5 E/E' med: 11.4 MV E/A: 0.83 Ao V2 max: 221.8 cm/sec LV V1 max: 99.6 cm/sec PA V2 max: 95.9 cm/sec Ao max P.7 mmHg LV V1 max P.0 mmHg Ao V2 mean: 159.6 cm/sec Ao mean P.0 mmHg Ao V2 VTI: 46.6 cm LEIDY(V,D): 2.0 cm2 TR max pepito: 225.0 cm/sec TR max P.3 mmHg ECHO/Echo Complete Interpretation Summary Normal LV size. Left ventricular systolic function is normal. The estimated ejection fraction is 65 %. Stage 1 diastolic dysfunction. Moderate concentric left ventricular hypertrophy. Ordering Physician: Rika Cuevas Referring Physician: Arley Martinez Performed By: Shelbie Mcgee, HERACLIO, RVT
== END 2021-04-29 23:59 | disposition home or self-care (01) ==
LOC: CVS 12:34
PROVIDERS: PCP Family Medicine; Referring Provider Physician Assistant Medical; Visit Provider Physician Assistant Medical
DX: R01.1 Cardiac murmur, unspecified (principal); I25.10 Atherosclerotic heart disease of native coronary artery without angina pectoris
CPT/HCPCS: 93306

== ENCOUNTER 2021-05-07 09:30 | Outpatient (RCR) | payer OTHER, SELFPAY ==
--- NOTE | 2021-05-05 10:29 | CR.ITP_ITS ---
Diagnosis Exercise - 30-day Assessment - Visit Date of Eval: 05/05/21 Session #:: 11 - Physician Prescribed Exercise Modalities: Treadmill, Rower, Airdyne Frequency: 3x/week for 12 weeks [36 sessions] Intensity: 60-80% of age predicted maximum heart rate reserve Current METSs:: 5.5 Target Heart Rate:: 102-133 Current RPE:: 12-15 Maximum Excercise HR:: 110 Resting Blood Pressure: 128/64 Maximum Exercise Blood Pressure: 150/70 EKG Type: NSR to ST with rare PAC and PVC - Outcomes & Goals Goals:: Verbalizes understanding of THR, RPE & goal METS by session 6, Documents in home exercise log/reports 30 min aerobic 5 day/wk by DC, Demonstrates accurate pulse taking by DC, Other additional outcome/goals: see below - Intervention & Plan Exercise Program Goals: Instruct on personal THR & RPE, Instruct on MET level & personal MET goal, Show patient to take own pulse /validate performance until accurate, Instruct on home exercise, Other additional plan/int - 30-day Reassessments 30 day Reassessments:: Progressing - Physical Activity Home Exercise Physical Activity - Home Exercise: Safe Exercise, Warm-up, Self-monitoring, Cool-Down, Home Exercise > 30 min Daily, Sitting Time <3 hours/daily - Outcomes & Goals Outcomes/Goals: Demonstrates correct Warm-up/exercise Cool-Down (S3) if = 2.5 METs, Verbalizes symptoms of exercise intolerance by Session 3 (S3), Demonstrate safe equipment use (S3) & follows exercise prescrition (6), Other: See below - Intervention & Plan Plan/Intervention: Instruct warm-up & cool-down if exercising at > 2 METs, Instruct on symptoms of exercise intolerance & actions to take, Instruct & monitor on saf, Assess intial functional capacity & safety risk, Other See below - 30-day Reassessments 30 day Reassessments:: Progressing Nutrition - Initial Assessment Nutrition - 30-Day Assessment - Program Goals Nutrition Program Goals: LDL <100 optimal. 100 - 129 Near optimal. 130 - 159 Borderline High. 160 - 189 High. Total Cholesterol <200 desirable. 200 - 239 Borderline High. >/= 240 High. HDL < 40 Low >/=60 High. Triglycerides <150 desirable. <199 optimal. VlDL 5 - 40. HgbA1C <7%. BMI <25 Patient has diagnosis of Hyperlipidemia (ICD E78)?: Yes - Visit Date of Assessment:: 05/05/21 Session #:: 11 - Cholesterol/Lipids Determine presence & major risk factors that modify LDL goal: Hypertension or hypertensive medication, Low HDL cholesterol <40 mg/dL*, Family history of premature CHD in Male < 55 years: female <65 yearsFa, Age men > 45 years; women >/= 55 years Outcomes/Goals: Pt IDs own risk factors & lifestyle modifications by Session 10, Verbalizes symptoms of angina & response by session 3., Pt independently manages, Other Additional Outcomes/Goals: Intervention/Plan: Advocate for lipid panel cholesterol medication if applicable, Instruct on personal lipid levels & lipid goals/NCEP guidelines, In struct on cholesterol, Other additional plan/int Referral to dietitian:: Yes 30-day Reassessments:: Progressing - Diabetes (Other Core Measures) Diabetes Type: Not Applicable - Weight Mgt (Other Care) Height: 6 ft Weight:: 116.346 kg BMI: 34.7 Diagnosis Overweight/Obesity BMI> 30% ICD-10 E66: Yes Outcomes/Goals: Pt sets, maintains & shows weight loss goal & trend during rehab, Other additional outcomes/goals Intervention/Plan: Instruct on ideal BMI & set weight loss goal w/patient, Assist pt to ID & incorporate diet changes for weight loss by S9, Refer to Structured Weight Loss program as appropriate, Encourage goal of using 250- 300dcal per session for weight loss, Other additional plan/interventions 30 day Reassessments:: Progressing - Healthy Eating Habits Will attend diet classes:: Yes Outcomes/Goals:: Consume diet rich in vegs,fruits,whole grain/high fiber,fish,lean meat, Limit sat/trans fats,cholesterol & added salts & sugars, Other additional outcome/goals: Intervention/Plan:: Assess current eating habits, Other Additional plan/interventions - Education Gave educational materials for:: Signs & symptoms of hypoglycemia, Signs & symptoms of hyperglycemia, Relate diabetes to coronary artery disease, Healthy eating Nutrition - 60-Day Assessment Nutrition - 90-Day Assessment Nutrition - Final Assessment Medical - Initial Assessment Medical- 30-Day Assessment - Visit Date of Eval: 05/05/21 Session #:: 11 - Medication Compliance Preventative Medication(s):: Aspirin, Clopidogrel/P2Y12 inhibit, Statin/lipid, Beta seda H/O mental health issues: depression, anxiety, or addiction?: No Doesn?t believe in the benefits of treatment?: No Believes medications are unnecessary or harmful?: No Has a concern about medication side effects?: No Expresses concern over the cost of medications?: No Outcomes/Goals: Verbalizes medications,desired effect & common side effects @ DC, Pt self-reports following medication regimen, Keeps card in wallet w/medications listed by DC, Other additional outcome/goals: Interventions/plans: Instruct on medication effects & side effects, Review medication list w/patient every two weeks, Instruct importance of taking meds as ordered & assist problem solving, Other additional 30-day Reassessments:: Progressing - Tobacco Use Tobacco Use: Non-smoker 30-day Reassessments:: Progressing - Hypertension Hypertension Diagnosis:: Hypertension ICD-10 I10 Resting Blood Pressure:: 128/64 [employer] Hypertension Guidelines: [place] [employer] Hypertension Guidelines. Normal BP Less than 120/80. Elevated BP 120/80. Hypertension Stage 1: BP 130-139/80-89. Hypertesnion Stage 2: BP 140 or higher/90 or higher. Hypertension Crisis: BP higher than 180/120 Peak Exercise Blood Pressure:: 182/76 Outcomes/Goals: Able to verbalize/achieve optimal blood pressure <130/80, Incorporates diet changes & exercise for blood pressure control by DC, Other additional outcomes/goals Interventions/plan: Instruct on optimal blood pressure, hypertension & medications, Instruct on effects of sodium, alcohol, stress, exercise &hypertension, Other additional plan/interventions 30 day Reassessments:: Progressing - Tobacco Cessation Referral Smoking Cessation Referral:: No Individual Education/Counseling:: No Education Schedule Given:: Yes Medical- 60-Day Assessment Medical- 90-Day Assessment Medical - Final Assessment Psychosocial - Initial Assess Psychosocial - 30-Day Assess - VIsit Date of Eval: 05/05/21 Session #:: 11 Not Applicable: No History of previous Mental disease:: No - Outcomes/Goals: See list Psychosocial Outcomes/Goals:: ID's personal stressors & 2 strategies to manage stress by discharge, Other Additional outcome/goals: - Intervention/Plan: See List Interventions/Plan:: Assess stressors,coping strategies & signs of derpression on admission, Instruct/assist pt to develop coping & personal stress Mgt str ategies, Refer to Behavioral Health if appropriate, Refer to Physician if appropriate, Instruct patient to recognize signs & symptoms of depression, Instruct patient to recog, Other additional plan/intervention - 30-day Reassessments: 30 day Reassessments:: Progressing Psychosocial - 60-Day Assess Psychosocial - 90-Day Assess Psychosocial - Final Assessmen Patient Health Questionnaire 30-Day Re-eval Assessment 1. Little interest or pleasure in doing things: Not at all 2. Feeling down, depressed, or hopeless: Not at all 3. Trouble falling or staying asleep, or sleeping too much: Several days 4. Feeling tired or having little energy: Nearly every day 5. Poor appetite or overeating: Not at all 6. Feeling bad about yourself -- or that you are a failure or have let yourself or your family down: Not at all 7. Trouble concentrating on things, such as reading the newspaper or watching television: Not at all 8. Moving or speaking so slowly that other people could have noticed. Or the opposite - being so fidgety or restless that you have been moving around a lot more than usual: Not at all 9. Thoughts that you would be better off , or of hurting yourself in some way: Not at all How difficult have these problems made it for you to do your work, take care of things at home, or get along with other people?: Somewhat difficult Total Score: 4 Self-Efficacy 30-Day Re-eval Assessment We would like to know how confident you are in doing certain activities. Please select your confidence level for:: Select your confidence level for the following using the scale 1-10 where 1 is not at all confident and 10 is totally confident. Your score is the average of all 6 responses. Fatigue: How confident are you that you can keep the fatigue caused by your disease from interfering with the things you want to do? Select Number: 4 Physical Discomfort or Pain: How confident are you that you can keep the physical discomfort or pain of your disease from interfering with the things you want to do? Select Number: 8 Emotional Distress: How confident are you that you can keep the emotional distress caused by your disease from interfering with the things you want to do? Select Number: 8 Other Symptoms or Health Problems: How confident are you that you can keep other symptoms or health problems from interfering with the things you want to do? Select Number: 7 Different Tasks and Activities: How confident are you that you can do the different tasks and activities needed to manage your health condition so as to reduce your need to see a doctor? Select Number: 9 Medication: How confident are you that you can do things other than just taking medication to reduce how much your illness affects your everyday life? Select Number: 8 Total Score:: 7 Nutrition Survey
[2021-05-05 10:40] VITALS: BP 128/64; BP 182/76; BMI 34.7
== END 2021-05-20 23:59 | disposition home or self-care (01) ==
LOC: CR 09:30
PROVIDERS: PCP Family Medicine; Referring Provider Internal Medicine Cardiovascular Disease; Visit Provider Internal Medicine Cardiovascular Disease
DX: R73.9 Hyperglycemia, unspecified (principal); I25.110 Atherosclerotic heart disease of native coronary artery with unstable angina pectoris; I25.2 Old myocardial infarction; I10 Essential (primary) hypertension; E78.00 Pure hypercholesterolemia, unspecified; Z95.5 Presence of coronary angioplasty implant and graft
CPT/HCPCS: 93798

== ENCOUNTER 2021-05-21 07:15 | Outpatient (RCR) | payer OTHER, SELFPAY ==
[2021-05-05 10:40] VITALS: BMI 34.7
[2021-05-21 00:43] VITALS: BP 128/64; BP 182/76
== END 2021-06-19 23:59 ==
LOC: CR 07:15
PROVIDERS: PCP Family Medicine; Referring Provider Internal Medicine Cardiovascular Disease; Visit Provider Internal Medicine Cardiovascular Disease
DX: R73.9 Hyperglycemia, unspecified (principal); I25.110 Atherosclerotic heart disease of native coronary artery with unstable angina pectoris; I25.2 Old myocardial infarction; Z95.5 Presence of coronary angioplasty implant and graft; I10 Essential (primary) hypertension; E78.00 Pure hypercholesterolemia, unspecified
CPT/HCPCS: 93798

== ENCOUNTER → 2021-07-06 | Outpatient (CLI) | payer OTHER, SELFPAY ==
[2021-05-05 10:40] VITALS: BMI 34.7
[2021-07-06 10:08] LABS: Absolute Lymphocyte Count 1.45 X10^3/uL (0.83-4.51); Absolute Neutrophil Count 3.3 X10^3/uL (2.0-7.7); Basophil# 0.04 X10^3/uL; Basophil% 0.7 % (0-1); Eosinophil# 0.18 X10^3/uL; Eosinophils% 3.2 % (0-5); Hematocrit 45.1 % (40-54); Lymphocyte # 1.45 X10^3/ul (0.83-4.51); Lymphocyte % 25.8 % (19-41); Mean Corp Hgb Conc 33.3 g/dL (32-36); Mean Corpuscular Hgb 30.8 pg (27.0-32.0); Mean Corpuscular Volume 92.6 fL (80-94); Mean Platelet Vol. 9.9 fl (6.2-12.0); Monocyte# 0.61 X10^3/uL; Monocyte% 10.9 % (0-10); NRBC Flagged by Analyzer 0 % (0-5); Neutrophil # 3.32 X10^3/uL (2.7-7.7); Platelet Count 177 K/mm3 (150-450); RBC Distribution Width CV 12.1 % (11.6-14.6); RBC Distribution Width SD 41.7 fl (35.1-43.9); Red Blood Count 4.87 M/mm3 (4.6-6.2); White Blood Count 5.6 K/mm3 (4.4-11.0)
[2021-07-06 10:28] LABS: Hemoglobin A1c 5.7 % (3.8-5.6)
[2021-07-06 10:39] LABS: Vitamin D,25 Hydroxy 40.9 ng/mL
[2021-07-06 10:57] LABS: Anion Gap 4 (5-15); BUN 20 mg/dL (7-18); BUN/Creat Ratio 23.3 RATIO (10-20); Calcium,Total 9.5 mg/dL (8.5-10.1); Chloride 104 mmol/L (98-107); Creatinine, Serum 0.86 mg/dL (0.70-1.30); EST Glomerular Filtration Rate 95 mL/min (>60); Est Glom Filt Rate - Afr Amer 115 mL/min (>60); Glucose 99 mg/dL (74-106); Potassium 4.4 mmol/L (3.5-5.1); Sodium Level 136 mmol/L (136-145); Thyroid Stim Hormone (TSH) 1.24 uIU/mL (0.358-3.74)
== END | disposition home or self-care (01) ==
PROVIDERS: PCP Family Medicine; Referring Provider Physician Assistant Medical; Visit Provider Physician Assistant Medical
DX: R53.83 Other fatigue (principal); I10 Essential (primary) hypertension; I25.10 Atherosclerotic heart disease of native coronary artery without angina pectoris
CPT/HCPCS: 36415; 80048; 82306; 83036; 84443; 85025

== ENCOUNTER 2021-09-03 07:42 | Day surgery (SDC) | payer OTHER, SELFPAY ==
[2021-05-05 10:40] VITALS: BMI 34.7
[2021-09-01 09:54] LABS: Absolute Lymphocyte Count 1.63 X10^3/uL (0.83-4.51); Absolute Neutrophil Count 4.1 X10^3/uL (2.0-7.7); Basophil# 0.05 X10^3/uL; Basophil% 0.7 % (0-1); Eosinophil# 0.23 X10^3/uL; Eosinophils% 3.4 % (0-5); Hematocrit 46.4 % (40-54); Hemoglobin 15.4 g/dL (13.0-16.5); Lymphocyte # 1.63 X10^3/ul (0.83-4.51); Lymphocyte % 23.8 % (19-41); Mean Corp Hgb Conc 33.2 g/dL (32-36); Mean Corpuscular Hgb 30.7 pg (27.0-32.0); Mean Corpuscular Volume 92.4 fL (80-94); Mean Platelet Vol. 9.5 fl (6.2-12.0); Monocyte# 0.78 X10^3/uL; Monocyte% 11.4 % (0-10); NRBC Flagged by Analyzer 0 % (0-5); Neutrophil # 4.14 X10^3/uL (2.7-7.7); Neutrophil % 60.4 % (47-70); Platelet Count 174 K/mm3 (150-450); RBC Distribution Width CV 12.6 % (11.6-14.6); RBC Distribution Width SD 42.7 fl (35.1-43.9); Red Blood Count 5.02 M/mm3 (4.6-6.2); White Blood Count 6.9 K/mm3 (4.4-11.0)
[2021-09-01 10:04] LABS: International Normalized Ratio 1.1; Partial Thromboplast Time 29.5 Seconds (24.1-36.2); Prothrombin Time (Protime)PT. 13.8 SECONDS (11.7-14.9)
[2021-09-01 10:24] LABS: Anion Gap 4 (5-15); BUN 16 mg/dL (7-18); Calcium,Total 9.4 mg/dL (8.5-10.1); Chloride 102 mmol/L (98-107); Creatinine, Serum 0.94 mg/dL (0.70-1.30); EST Glomerular Filtration Rate 86 mL/min (>60); Est Glom Filt Rate - Afr Amer 104 mL/min (>60); Glucose 100 mg/dL (74-106); Potassium 4.6 mmol/L (3.5-5.1); Sodium Level 134 mmol/L (136-145)
[2021-09-02 10:56] VITALS: BMI 33.6
--- NOTE | 2021-09-03 10:04 | CL.D_ITS ---
Patient Name: TEE WATKINS Study Date: 09/03/2021 Performing: Rush Francisco MD Ht: 72.04 inches 183 cm : 1955 Wt: 246.92 lbs 112 kg Age: 66 Gender: male BSA: 2.33 PROCEDURE(S) PERFORMED [id number])C/COR CLINICAL PROFILE AND INDICATIONS Indications: Suspected CAD Heart Failure: None Stress/Imaging Stress/Image Study Performed: No CAD Presentations: Unstable angina. CONCLUSIONS Moderate CAD with no high grade stenosis. RECOMMENDATIONS Medical therapy DESCRIPTION OF PROCEDURE The patient arrived to the procedure lab. The risks and benefits of the procedure as well as a full d escription of our services here and current unavailability of surgical backup were fully explained to the patient and/or their significant other prior to the catheterization. The Timeout was completed, verifying the correct patient and procedure. The patient's procedural site was prepped and draped in the usual fashion. Local anesthetic was given subcutaneously to right radial region with Lidocaine 2% . Using a modified Seldinger technique, arterial access was obtained via the right radial artery, a 6 Fr sheath was inserted. Right Coronary Artery selective angiography was then performed in multiple v iews using a 5 Fr. 4.0 Sneads catheter. Left Coronary Artery selective angiography was performed in mu ltiple views using a 5 Fr. 4.0 Sneads catheter.The arterial sheath was pulled and a TR Band was applie d for hemostasis. 10cc of air CORONARY ANGIOGRAPHY DOMINANCE: Right Dominant LEFT HEART ASSESSMENT Left Ventricular Ejection Fraction: by LV Gram 60 % Normal LV wall motion Normal Left Ventricular systolic function LEFT MAIN: Angiographically normal, Angiographically normal LEFT ANTERIOR DESCENDING ARTERY: Diffusely diseased up to 40 %, Previously placed stent is patent CIRCUMFLEX ARTERY: Previously placed stent is patent, Mild luminal irregularities less than 30% RAMUS: Mild luminal irregularities less than 30% RIGHT CORONARY ARTERY: Moderate luminal irregularities up to 50% Previously placed stent is patent COMPLICATIONS No Complications PROCEDURE MEDICATIONS Fentanyl 50 mcg IV Versed 1 mg IV Versed 1 mg IV Oxygen: 2 L/min via nasal cannula Heparin given IA 09/03/2021 09:46:56 Verapamil 2.5mg, Ntg 100mcgs, 3000 units of Heparin given IA 09/03/2021 09:46:56 SUMMARY OF HEMODYNAMIC DATA Time AIR REST ECG 07:58:27 AO 82/61 (71) SA 09:49:02 Signed By Rush Francisco MD On 09/03/2021 10:03:47 AM Rush Francisco MD
== END 2021-09-03 12:25 | disposition home or self-care (01) ==
LOC: CLSP 07:43
PROVIDERS: Physician Assistant Medical; PCP Family Medicine; Referring Provider Internal Medicine Cardiovascular Disease; Visit Provider Internal Medicine Cardiovascular Disease
DX: I25.111 Atherosclerotic heart disease of native coronary artery with angina pectoris with documented spasm (principal); Z95.5 Presence of coronary angioplasty implant and graft; E78.5 Hyperlipidemia, unspecified; E78.00 Pure hypercholesterolemia, unspecified; R53.83 Other fatigue; I10 Essential (primary) hypertension; M79.7 Fibromyalgia; Z87.891 Personal history of nicotine dependence; R06.02 Shortness of breath
CPT/HCPCS: 36415; 80048; 85025; 85610; 85730; 93454; 99152; 99153; J7030; C1769; C1894; Q9967